=== PATIENT | female | born 1960 | race Caucasian/White ===

== ENCOUNTER 2017-01-06 17:34 | Observation (INO) | END 2017-01-07 15:45 | disposition home or self-care (01) | LOC: MEDSUR 17:34 → ED 17:34 → MEDSUR 20:52 | PROVIDERS: ADMIT Internal Medicine; ATTEND Internal Medicine ==

== ENCOUNTER 2017-01-09 09:34 | Observation (INO) ==
[2017-01-09] MEDS ORDERED: 0.9 % SODIUM CHLORIDE 1,000 ML IV ONE ×2 (09:54→11:35)
[2017-01-09] MEDS ORDERED: ONDANSETRON 4 MG/2 ML VIAL IV ONE (10:03)
--- NOTE | 2017-01-09 10:36 | XRay Report ---
CLINICAL INFORMATION: Rest pain COMPARISON: None. FINDINGS:The heart size, mediastinum and pulmonary vessels are unremarkable. The lungs are clear. There are no effusions. Mild old compression fractures seen in mid thoracic spine with degenerative disc disease throughout the thoracic spine IMPRESSION: No acute cardiopulmonary disease. Consider formal DEXA scanning patient may benefit from medical therapy for osteoporosis - if present Interpreted and Authenticated by: Vinay Vance 01/09/17
[2017-01-09 10:38] LABS: Mean Cell Volume 84.6 fL (80.0-100.0); Mean Corpuscular HGB Conc 33.3 g/dL (31.0-36.0); Mean Corpuscular Hemoglobin 28.2 pg (26.0-34.0); Platelet Count 134 K/mcL (140-440); RBC 4.25 M/mcL (4.00-5.20); Red Cell Distribution Width 12.9 % (11.5-14.5)
[2017-01-09 11:00] LABS: Creatine Kinase MB 3.8 ng/ml (0-2.9)
[2017-01-09 11:03] LABS: ALT/SGPT 12 U/l (0-40); Albumin/Globulin Ratio 1.8 (1.0-2.3); Alkaline Phosphatase 93 U/L (39-117); Beta Hydroxybutyrate 1.77 mmol/L (< 0.27); Blood Urea Nitrogen 23 mg/dl (6-20)
[2017-01-09 11:11] LABS: Eosinophils % (Manual) 2 % (0-7); Lymphocytes % 19 % (15-49); Monocytes % (Manual) 5 % (1-12); Platelet Estimate NORMAL (NORMAL); RBC Morphology NORMAL (NORMAL); Segmented Neutrophils % 74 % (38-78)
[2017-01-09] MEDS ORDERED: INSULIN REGULAR, HUMAN 50 UNIT in 0.9 % SODIUM CHLORIDE 99.5 ML IV ONE ×2 (11:15→12:30)
[2017-01-09] MEDS ORDERED: INSULIN REGULAR, HUMAN 1 UNIT/0.01 ML UNIT IV ONE (11:16)
[2017-01-09 11:24] LABS: Appearance,Urine HAZY; Bacteria,Urine 0 /hpf (0); Bilirubin,Urine NEG (NEG); Color,Urine YELLOW; Glucose,Urine (UA) >=500 mg/dL (NEG); Leukocyte Esterase,Urine 25 /uL (NEG); Mucus,Urine FEW /hpf (0); Nitrate,Urine NEG (NEG); Protein,Urine NEG (NEG); Specific Gravity,Urine 1.011 (1.000-1.035); Urine Blood NEG mg/dL (<0.03); Urine RBC 1 /hpf (0-1); Urine Squamous Epithelial Cell < 1 /hpf (0-4); Urine WBC 1 /hpf (0-4); Urobilinogen,Urine NEG (NEG)
--- NOTE | 2017-01-09 11:30 | Emergency Department Note ---
General Adult HPI - General Chief complaint: Blood Sugar Problem Stated complaint: elevated blood sugar Time Seen by Provider: 01/09/17 09:52 Source: patient Mode of arrival: ambulatory - History of Present Illness HPI Narrative: 56-year-old female who was admitted on 01/06 for poor diabetic control and UTI. Discharged the next day for hydration and UTI. She was seen again for the G and was noted that the BP was elevated she was treated with Norvasc troponins were performed which were negative at that time she had some chest pain at that time as well. she States. She appears to be somewhat noncompliant with the medications she does have a care provider who did give her insulin this morning at 6 units of rapid acting. Her blood sugars elevated today at 400 states she had an episode of chest pain again today just prior to coming into the ED. he is denying chest pain at this time. Describes the pain as sharp in nature. Her blood sugars continue to be elevated. We will continue the workup. - Related Data Home Medications Medication Instructions Recorded Confirmed alprazolam 0.5 mg tablet 0.5 mg PO DAILY tab 12/09/14 01/09/17 aripiprazole 10 mg tablet 10 mg PO QAM tab 12/09/14 01/09/17 ergocalciferol (vitamin D2) 50,000 50,000 unit PO MO@0900 cap 12/09/14 01/09/17 unit capsule lamotrigine 100 mg tablet 100 mg PO QHS tab 12/09/14 01/09/17 loxapine succinate 10 mg capsule 10 mg PO BID cap 12/09/14 01/09/17 tramadol 50 mg tablet 50 mg PO TID PRN tab 12/09/14 01/09/17 paliperidone palmitate 156 mg/mL 156 mg IM Q28D ml 11/17/15 01/09/17 intramuscular syringe benztropine 1 mg tablet 1 mg PO BID 30 Days 07/20/16 01/09/17 lisinopril 5 mg tablet 5 mg PO DAILY 30 Days 07/20/16 01/09/17 Atorvastatin [Lipitor] 40 mg PO Q48H 01/06/17 01/09/17 Omeprazole [Prilosec] 40 mg PO BID 01/09/17 01/09/17 Previous Rx's Medication Instructions Recorded baclofen 20 mg tablet 20 mg PO Q6H #60 tab 12/18/14 albuterol sulfate HFA 90 90 mcg INHALATION Q4H PRN #8.5 g 07/13/15 mcg/actuation aerosol inhaler mupirocin 2 % topical ointment 1 applic TOPICAL BID #22 g 10/04/15 oxybutynin chloride ER 10 mg 10 mg PO QDAY #30 tab 03/08/16 tablet,extended release 24 hr cetirizine 10 mg tablet 5 mg PO QHS #30 tab 07/13/16 escitalopram 20 mg tablet 20 mg PO QAM #30 tab 07/24/16 levothyroxine 112 mcg tablet 112 mcg PO QAM #30 tab 07/24/16 insulin glargine 100 unit/mL (3 60 unit SUB-Q QDAY #15 ml 09/14/16 mL) subcutaneous pen insulin aspart 100 unit/mL 1 unit SUB-Q ONCE #15 ml 09/21/16 subcutaneous pen ranitidine 150 mg tablet 150 mg PO BID #60 tab 10/09/16 hydrocodone 5 mg-acetaminophen 325 1 tab PO TID-QID PRN #120 tab 12/22/16 mg tablet Allergies Allergy/AdvReac Type Severity Reaction Status Date / Time Tetracycline Allergy Mild Hives Verified 01/09/17 09:43 Erythromycin Base Allergy Unknown Diarrhea Verified 01/09/17 09:43 Penicillins Allergy Unknown Hives Verified 01/09/17 09:43 [place] Allergy Unknown Hives Verified 01/09/17 09:43 Review of Systems All systems ED: reviewed and negative except as stated. Constitutional: Denies: fever Eyes: Denies: eye pain ENT ED: Denies: ear pain Cardiovascular: Reports: chest pain. Denies: palpitations, dyspnea on exertion , orthopnea Respiratory: Denies: cough, dyspnea Gastrointestinal: Denies: abdominal pain, nausea Genitourinary: Denies: urgency, dysuria Musculoskeletal: Denies: back pain Integumentary: Denies: rash Neurological: Reports: weakness. Denies: headache Psychiatric: Denies: anxiety Endocrine: Denies: fatigue Hematological/Lymphatic: Denies: easy bleeding Allergic/Immunologic: Denies: facial swelling Past Medical History - Past Medical History Medical history: Reports: diabetes, GERD, hyperlipidemia, hypertension, kidney stones, renal disease, thyroid disease, other Surgical history ED: Reports: hysterectomy, tonsillectomy, other (Strabismus) Psychiatric history: Reports: schizophrenia (Schizoaffective) Family history: Reports: non-contributory - Social History Alcohol use: Reports: None Drug use: Reports: none Course Vital Signs Temperature 97.1 F 01/09/17 09:35 Pulse Rate 103 H 01/09/17 09:35 Respiratory Rate 16 01/09/17 09:35 Blood Pressure 114/85 01/09/17 09:35 Pulse Oximetry (%) 94 01/09/17 09:35 Temperature 97.1 F 01/09/17 09:35 Pulse Rate 96 H 01/09/17 11:00 Respiratory Rate 19 01/09/17 11:00 Blood Pressure 145/98 01/09/17 11:00 Pulse Oximetry (%) 91 01/09/17 11:00 Medical Decision Making - [facility] Narrative Medical decision making narrative: Patient blood sugar was 420 with positive ketones in the blood and also the bicarb level was 16. ABG show pH of 7.4 respiratory alkalosis compensation. With CO2 of 28.. Level was 17 on ABGs. Given IV fluids and PA protocol started however at a very low dose of 4 units IV.. Patient has severe schizophrenia is unable to her medications and she has 6 different care providers helping her with her medications would recommend that her providers only instructed on use of the sliding scale. - Lab Data Result diagrams: 01/09/17 10:03 01/09/17 10:03 Lab Results 01/09/17 01/09/17 01/09/17 Range/Units 10:03 10:03 10:03 WBC 6.1 (4.5-11.0) K/mcL RBC 4.25 (4.00-5.20) M/mcL Hgb 12.0 (12.0-15.0) g/dL Hct 35.9 L (36.0-48.0) % POC Hct 37.0 (36.0-48.0) % MCV 84.6 (80.0-100.0) fL MCH 28.2 (26.0-34.0) pg MCHC 33.3 (31.0-36.0) g/dL RDW 12.9 (11.5-14.5) % Plt Count 134 L (140-440) K/mcL MPV 11.3 H (7.4-10.4) fL Total Counted 100 Seg Neutrophils % 74 (38-78) % Band Neutrophils % Not Reportable Lymphocytes % 19 (15-49) % Monocytes % (Manual) 5 (1-12) % Eosinophils % (Manual) 2 (0-7) % Platelet Estimate Normal (NORMAL) RBC Morphology Normal (NORMAL) D-Dimer 0.38 (0.00-0.40) ug/ml POC Sodium 132 L (133-145) mmol/L Sodium 129 L (133-145) mmol/L POC Potassium 5.5 H (3.3-5.1) mmol/L Potassium 5.6 H (3.3-5.1) mmol/L POC Chloride 106 (96-108) mmol/L Chloride 95 L (96-108) mmol/L Carbon Dioxide 15 L (22-30) mmol/L POC Total CO2 16 L (22-30) mmol/L Anion Gap 19.0 H (8-16) POC BUN 23 H (6-20) mg/dl BUN 23 H (6-20) mg/dl Creatinine 1.1 (0.6-1.1) mg/dl POC Creatinine 1.1 (0.6-1.1) mg/dl GFR Calculation 57 Glucose 426 H (70-105) mg/dL POC Glucose 408 H (70-105) mg/dL Calcium 9.0 (8.6-10.4) mg/dl POC WB Ioniz Calcium 1.18 (1.16-1.32) mmol/L Total Bilirubin 0.4 (0.0-1.0) mg/dL AST 11 (0-37) U/l ALT 12 (0-40) U/l Alkaline Phosphatase 93 (39-117) U/L Total Creatine Kinase (24-170) IU/L CK-MB (CK-2) (0-2.9) ng/ml Myoglobin (25-58) ng/ml Troponin T (0-0.03) ng/ml Total Protein 6.2 (5.9-8.4) gm/dL Albumin 4.0 (3.2-5.2) gm/dL Globulin 2.2 (2.2-3.7) gm/dL Albumin/Globulin Ratio 1.8 (1.0-2.3) Beta-Hydroxybutyrate 1.77 H (< 0.27) mmol/L Urine Color Urine Appearance Urine pH (5.0-9.0) Ur Specific Mio (1.000-1.035) Urine Protein (NEG) mg/dL Urine Glucose (UA) (NEG) mg/dL Urine Ketones (NEG) mg/dL Urine Occult Blood (<0.03) mg/dL Urine Nitrate (NEG) Urine Bilirubin (NEG) mg/dL Urine Urobilinogen (NEG) mg/dL Ur Leukocyte Esterase (NEG) /uL Urine RBC (0-1) /hpf Urine WBC (0-4) /hpf Ur Squamous Epith Cells (0-4) /hpf Urine Bacteria (0) /hpf Urine Mucus (0) /hpf Ur Culture Indicated? 01/09/17 01/09/17 01/09/17 Range/Units 10:03 10:03 10:50 WBC (4.5-11.0) K/mcL RBC (4.00-5.20) M/mcL Hgb (12.0-15.0) g/dL Hct (36.0-48.0) % POC Hct (36.0-48.0) % MCV (80.0-100.0) fL MCH (26.0-34.0) pg MCHC (31.0-36.0) g/dL RDW (11.5-14.5) % Plt Count (140-440) K/mcL MPV (7.4-10.4) fL Total Counted Seg Neutrophils % (38-78) % Band Neutrophils % Lymphocytes % (15-49) % Monocytes % (Manual) (1-12) % Eosinophils % (Manual) (0-7) % Platelet Estimate (NORMAL) RBC Morphology (NORMAL) D-Dimer (0.00-0.40) ug/ml POC Sodium (133-145) mmol/L Sodium (133-145) mmol/L POC Potassium (3.3-5.1) mmol/L Potassium (3.3-5.1) mmol/L POC Chloride (96-108) mmol/L Chloride (96-108) mmol/L Carbon Dioxide (22-30) mmol/L POC Total CO2 (22-30) mmol/L Anion Gap (8-16) POC BUN (6-20) mg/dl BUN (6-20) mg/dl Creatinine (0.6-1.1) mg/dl POC Creatinine (0.6-1.1) mg/dl GFR Calculation Glucose (70-105) mg/dL POC Glucose (70-105) mg/dL Calcium (8.6-10.4) mg/dl POC WB Ioniz Calcium (1.16-1.32) mmol/L Total Bilirubin (0.0-1.0) mg/dL AST (0-37) U/l ALT (0-40) U/l Alkaline Phosphatase (39-117) U/L Total Creatine Kinase 132 (24-170) IU/L CK-MB (CK-2) 3.8 H (0-2.9) ng/ml Myoglobin 71 H (25-58) ng/ml Troponin T < 0.01 (0-0.03) ng/ml Total Protein (5.9-8.4) gm/dL Albumin (3.2-5.2) gm/dL Globulin (2.2-3.7) gm/dL Albumin/Globulin Ratio (1.0-2.3) Beta-Hydroxybutyrate (< 0.27) mmol/L Urine Color Yellow Urine Appearance Hazy Urine pH 5.0 (5.0-9.0) Ur Specific Mio 1.011 (1.000-1.035) Urine Protein Neg (NEG) mg/dL Urine Glucose (UA) >=500 A (NEG) mg/dL Urine Ketones 5/tr A (NEG) mg/dL Urine Occult Blood Neg (<0.03) mg/dL Urine Nitrate Neg (NEG) Urine Bilirubin Neg (NEG) mg/dL Urine Urobilinogen Neg (NEG) mg/dL Ur Leukocyte Esterase 25 A (NEG) /uL Urine RBC 1 (0-1) /hpf Urine WBC 1 (0-4) /hpf Ur Squamous Epith Cells < 1 (0-4) /hpf Urine Bacteria 0 (0) /hpf Urine Mucus Few (0) /hpf Ur Culture Indicated? No Disposition Pt seen by [employer]/PA only: No Clinical Impression: Diabetic ketoacidosis Disposition: Xfer As Inpt ([facility]) Condition: Fair Referrals: Ander Snyder MD [Primary Care Provider] -
[2017-01-09] MEDS ORDERED: INSULIN REGULAR, HUMAN 50 UNIT in 0.9 % SODIUM CHLORIDE 100 ML IV SCH (12:51)
[2017-01-09] MEDS ORDERED: ONDANSETRON 4 MG/2 ML VIAL IV PRN (12:51)
[2017-01-09] MEDS ORDERED: METOCLOPRAMIDE 10 MG/2 ML VIAL IV PRN (12:51)
[2017-01-09] MEDS ORDERED: NALOXONE HCL 0.4 MG/ML VIAL IV PRN (12:51)
[2017-01-09] MEDS: 0.45 % SODIUM CHLORIDE 1,000 ML IV SCH ×4 (13:09→22:11)
[2017-01-09] MEDS: ALBUTEROL SULFATE 2.5 MG/3 ML NEBULIZER NEB SCH ×2 (13:15→19:26)
[2017-01-09 13:24] LABS: ALT/SGPT 12 U/l (0-40); Albumin/Globulin Ratio 1.7 (1.0-2.3); Alkaline Phosphatase 92 U/L (39-117); Bilirubin,Direct < 0.2 mg/dL (0.0-0.3); Blood Urea Nitrogen 24 mg/dl (6-20); Gamma Glutamyl Transpeptidase 13 U/L (5-36); Magnesium 1.2 mg/dL (1.6-2.5); Uric Acid 5.4 mg/dL (2.5-8.0)
[2017-01-09] MEDS ORDERED: CALCIUM GLUCONATE 4.65 MEQ/10 ML VIAL IV ONE (13:41)
[2017-01-09] MEDS ORDERED: CALCIUM GLUCONATE 4.65 MEQ in 0.9 % SODIUM CHLORIDE 50 ML IV ONE (13:45)
[2017-01-09] MEDS: 0.9 % SODIUM CHLORIDE 10 ML SYRINGE IV SCH ×2 (14:16→20:54)
[2017-01-09 14:57] LABS: Blood Urea Nitrogen 20 mg/dl (6-20)
[2017-01-09] MEDS ORDERED: INSULIN GLARGINE, HUMAN 1 UNIT/0.01 ML SQ ONE (15:03)
--- NOTE | 2017-01-09 15:12 | Internal Med History&Physical ---
Medical - H&P: HPI Patient information: Note initiated : 01/09/17 at 3:06 pm Service Date, if different from initiated Date: [] Patient: Padmaja Dillard 56 y/o F admitted on 01/09/17 for elevated blood sugar. Chief Complaint: [] History of present illness: Ms. Dillard is a 56 year old Female with h/o mental health issues, and DM on insulin presents to the ER for for 2 days in a row, after being discahrged 2 days ago. The patient was admitted to the hospital initially on the fifth of this month for hyperglycemia and acute renal failure. Patient was treated with IV fluids and insulin. The patient responded to treatment very well and overnight her glucose level was back to baseline, her kidney function improved and she was discharged home. The patient did not take her long-acting insulin on the day of discharge, had increased amounts of carb intake. That evening although she did not sugar laden products, Her diet consisted of fries and chips. The patient next day had some confusion and headache and was seen in the ED again this was yesterday, her head CT was done which was negative and her labs showed that she had glucose n the 300s. The patient had a negative workup for infection. Her mental status has cleared and therefore was discharged home. The patient did not take her long-acting insulin again yesterday because she was in the emergency department. She forgot to take her nighttime insulin last night. This morning she had 3 cups of sugary coffee and when she checked her blood sugar level was elevated around 450. She therefore presented to the ER he patient has chronic back pain but denies any other complaints. On talking with the patient is clear that the patient does not have much insight with regards to her disease process, notes that her sugars usually run in 300s in the afternoon. In the ER, the patient had elevated glucose, hyponatremia, hyperkalemia, elevated anion gap, slight ketones positive,elevated hydroxybutyrate, negative chest x-ray negative. UA. The patient was admitted to the hospital for acute diabetic ketoacidosis. Review of systems: CONSTITUTIONAL: No weight loss, fever, chills, weakness or fatigue. HEENT: Eyes: No visual loss, blurred vision, double vision or yellow sclerae. Ears, Nose, Throat: No hearing loss, sneezing, congestion, runny nose or sore throat. SKIN: No rash or itching. CARDIOVASCULAR: No chest pain, chest pressure or chest discomfort. No palpitations or edema. RESPIRATORY: No shortness of breath, cough or sputum. GASTROINTESTINAL: No nausea, vomiting or diarrhea or constipation. No abdominal pain or blood in stools No Anne. GENITOURINARY: Denies Burning on urination. Blood in urine, or foul smelling urine NEUROLOGICAL: No headache, dizziness, syncope, paralysis, tremors, numbness or tingling in the extremities. No change in bowel or bladder control. MUSCULOSKELETAL: No muscle, present Chr back pain, joint pain or stiffness. HEMATOLOGIC: No bleeding or bruising. No enlarged nodes PSYCHIATRIC: No depression or anxiety. ENDOCRINOLOGIC: No reports of sweating, cold or heat intolerance. No polyuria or polydipsia. ALLERGIES: No hives, eczema or rhinitis. Skin: No rash, no jaundice, cyanosis or pallor. Medical - H&P: [facility] Medical history: Medical History (Last Updated 01/09/17 @ 11:51 by Ander Mason MD) Anemia in chronic kidney disease (Chronic) CKD (chronic kidney disease), stage II (Chronic 02/05/13) Chronic kidney disease, stage III (moderate) (Chronic) Chronic schizoaffective disorder (Chronic) Diabetes (Chronic) Diabetes mellitus (Chronic) Diabetes mellitus type II, uncontrolled (Chronic) Diabetes mellitus, type II (Chronic 07/29/14) Esophageal reflux (Chronic) History of kidney stones (Chronic) Hyperlipidemia (Chronic 04/03/06) Hypertension, essential (Chronic) 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) Hypothyroidism (acquired) (Chronic) Keratoconjunctivitis sicca not specified as Sjogren's (Chronic) Lattice degeneration of peripheral retina (Chronic) [employer]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) Overweight (Chronic) Proteinuria (Chronic) Repetitive strain injury of lower back (Chronic) Stress incontinence, female (Chronic) 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) UTI (urinary tract infection) (Chronic) Urinary tract infection (Chronic) Vitamin D deficiency (Chronic) Dental abscess (Resolved) Diarrhea (Resolved) Dysuria (Resolved) Left wrist injury (Resolved) Pustular eczema (Resolved) Urge incontinence (Resolved) Vomiting (Resolved) Wrist Injury (Resolved) Surgical history: Past Surgical History (Last Updated 10/26/16 @ 10:15 by Ander Snyder MD) History of adenoidectomy (Resolved) History of eye surgery (Resolved) History of hysterectomy (Resolved) History of tonsillectomy (Resolved) Pertinent family history: Family History (Last Reviewed 10/26/16 @ 10:14 by Ander Snyder MD) Unknown Depression Cardiac disease Essential hypertension Grandmother(paternal)/92 Malignant neoplasm Medical - H&P: Meds Home Medications Medication Instructions Recorded Confirmed Type alprazolam 0.5 mg tablet 0.5 mg PO DAILY tab 12/09/14 01/09/17 History aripiprazole 10 mg tablet 10 mg PO QAM tab 12/09/14 01/09/17 History ergocalciferol (vitamin D2) 50,000 50,000 unit PO MO@0900 cap 12/09/14 History unit capsule lamotrigine 100 mg tablet 100 mg PO QHS tab 12/09/14 01/09/17 History loxapine succinate 10 mg capsule 10 mg PO BID cap 12/09/14 01/09/17 History tramadol 50 mg tablet 50 mg PO TID PRN tab 12/09/14 01/09/17 History baclofen 20 mg tablet 20 mg PO Q6H #60 tab 12/18/14 01/09/17 Rx albuterol sulfate HFA 90 90 mcg INHALATION Q4H PRN #8.5 g 07/13/15 01/09/17 Rx mcg/actuation aerosol inhaler mupirocin 2 % topical ointment 1 applic TOPICAL BID #22 g 10/04/15 01/09/17 Rx paliperidone palmitate 156 mg/mL 156 mg IM Q28D ml 11/17/15 01/09/17 History intramuscular syringe oxybutynin chloride ER 10 mg 10 mg PO QDAY #30 tab 03/08/16 01/09/17 Rx tablet,extended release 24 hr cetirizine 10 mg tablet 5 mg PO QHS #30 tab 07/13/16 01/09/17 Rx benztropine 1 mg tablet 1 mg PO BID 30 Days 07/20/16 01/09/17 History lisinopril 5 mg tablet 5 mg PO DAILY 30 Days 07/20/16 01/09/17 History escitalopram 20 mg tablet 20 mg PO QAM #30 tab 07/24/16 01/09/17 Rx levothyroxine 112 mcg tablet 112 mcg PO QAM #30 tab 07/24/16 01/09/17 Rx insulin glargine 100 unit/mL (3 60 unit SUB-Q QDAY #15 ml 09/14/16 01/09/17 Rx mL) subcutaneous pen insulin aspart 100 unit/mL 1 unit SUB-Q ONCE #15 ml 09/21/16 01/09/17 Rx subcutaneous pen ranitidine 150 mg tablet 150 mg PO BID #60 tab 10/09/16 01/09/17 Rx hydrocodone 5 mg-acetaminophen 325 1 tab PO TID-QID PRN #120 tab 12/22/16 Rx mg tablet Atorvastatin [Lipitor] 40 mg PO Q48H 01/06/17 01/09/17 History Omeprazole [Prilosec] 40 mg PO BID 01/09/17 01/09/17 History Allergies Allergy/AdvReac Type Severity Reaction Status Date / Time Sulfa (Sulfonamide Allergy Intermediate Itching Verified 01/09/17 12:36 Antibiotics) Tetracycline Allergy Mild Hives Verified 01/09/17 09:43 Erythromycin Base Allergy Unknown Diarrhea Verified 01/09/17 09:43 Penicillins Allergy Unknown Hives Verified 01/09/17 09:43 [place] Allergy Unknown Hives Verified 01/09/17 09:43 Medical - H&P: Exam - Constitutional Vitals: Temp Pulse Resp BP Pulse Ox 98.5 F 80 15 140/87 100 01/09/17 13:00 01/09/17 13:18 01/09/17 14:00 01/09/17 14:00 01/09/17 14:00 Exam: GENERAL: The patient is a well-developed, well-nourished in no apparent distress. Is alert and oriented x3. VITAL SIGNS: Reviewed and as noted elsewhere. HEENT: Head is normocephalic and atraumatic. Extraocular muscles are intact. Pupils are equal, round, and reactive to light. Nares appeared normal. Mouth appears any without lesions. Mucous membranes are dry. NECK: Normal to inspection, Supple, No lymphadenopathy or thyromegaly. LUNGS: Air entry equal on both sides, no wheezing, crackles or rhonchi noted. No accessory muscles of respiration HEART: Regular rate and rhythm normal, S1 and S2 heard, no Gallop, S3 or Rub Noted, No Gross murmur heard. ABDOMEN: Soft, nontender, and nondistended. Positive bowel sounds. No hepatosplenomegaly was noted. EXTREMITIES: No cyanosis, clubbing, rash, lesions or edema. NEUROLOGIC: Cranial nerves II through XII are grossly intact. Motor and Sensory System Grossly Intact PSYCHIATRIC: Normal affect, Normal Mood. Appropriate Behavior. SKIN: No ulceration or wounds noted, No jaundice, No rash noted. Medical - H&P: Reslt - Labs CBC & Chem 7: 01/09/17 10:03 01/09/17 13:50 Labs: BMP 01/09/17 13:50 Sodium 138 Potassium 5.1 Chloride 106 Carbon Dioxide 17 L BUN 20 Creatinine 1.0 Glucose 212 H Calcium 8.9 Medical - H&P: A/P - Narrative A/P Narrative: A/P DKA: due to noncompliance of medications. Mild DKA was treated with IV fluids, IV insulin, and nothing by mouth status. By the time of dictation, the Actos to 15. Patient feeling well, I have stopped the drip and Lantus at home to 60 has been started. We'll resume by mouth diet. Uncontrolled diabetes-patient has very poor insight into disease process, I reviewed the PCPs note and despite education. It seems that the patient is noncompliant with the diet, his current flareup of . Elevated glucose started from her drinking sugary drinks and then admissions to the hospital and subsequent ER visits leading to skipping her home doses of insulin. The patient has been educated again at this visit. The patient may benefit with enhanced supervision for her diabetes management. Noncompliance with medications as well as diet-patient educated at length. Hyponatremia, this is pseudohyponatremia due to elevated sugarwould resolve as soon as the sugars corrected. Hyperkalemia-due to acidosis, expect to resolve with fluids and insulin. EKG shows no changes , calcium gluconate given. dVT prophylaxis-heparin. Diet is diabetic diet,patient was nothing by mouth, however, her gap closed and therefore diet has been resumed The patient is full code. Medical - H&P: Qual - VTE Deep Vein Thrombosis/Pulmonary Embolism Present on Admission: No Social History - Tobacco smoking status: Never smoker
[2017-01-09] MEDS ORDERED: DEXTROSE 31 GM ORAL.SUSP PO PRN (15:24)
[2017-01-09] MEDS ORDERED: DEXTROSE 50% 50 ML VIAL IV PRN (15:24)
[2017-01-09] MEDS: INSULIN LISPRO 1 UNIT/0.01 ML UNIT SQ SCH ×2 (16:35→20:53)
[2017-01-09] MEDS: HEPARIN 5,000 UNIT/ML VIAL SQ SCH (20:54)
[2017-01-10] MEDS: ALBUTEROL SULFATE 2.5 MG/3 ML NEBULIZER NEB SCH ×4 (00:50→19:14)
[2017-01-10] MEDS: 0.45 % SODIUM CHLORIDE 1,000 ML IV SCH ×2 (02:02→06:12)
[2017-01-10] MEDS: 0.9 % SODIUM CHLORIDE 10 ML SYRINGE IV SCH ×3 (05:47→21:36)
[2017-01-10 06:24] LABS: Beta Hydroxybutyrate 0.23 mmol/L (< 0.27)
[2017-01-10] MEDS: INSULIN LISPRO 1 UNIT/0.01 ML UNIT SQ SCH ×4 (08:01→20:25)
[2017-01-10 08:08] LABS: Mean Cell Volume 83.1 fL (80.0-100.0); Mean Corpuscular HGB Conc 33.7 g/dL (31.0-36.0); Platelet Count 138 K/mcL (140-440); RBC 4.13 M/mcL (4.00-5.20); Red Cell Distribution Width 12.5 % (11.5-14.5)
[2017-01-10 08:41] LABS: ALT/SGPT 10 U/l (0-40); Albumin 3.5 gm/dL (3.2-5.2); Albumin/Globulin Ratio 1.7 (1.0-2.3); Alkaline Phosphatase 71 U/L (39-117); Bilirubin,Direct < 0.2 mg/dL (0.0-0.3); Blood Urea Nitrogen 12 mg/dl (6-20); Gamma Glutamyl Transpeptidase 11 U/L (5-36); Magnesium 1.3 mg/dL (1.6-2.5); Uric Acid 5.1 mg/dL (2.5-8.0)
[2017-01-10 08:46] LABS: Lymphocytes % 19 % (15-49); Monocytes % (Manual) 5 % (1-12); Platelet Estimate DECREASED (NORMAL); RBC Morphology NORMAL (NORMAL); Segmented Neutrophils % 76 % (38-78)
[2017-01-10] MEDS ORDERED: ATORVASTATIN 20 MG TABLET PO SCH (09:00)
[2017-01-10] MEDS ORDERED: MAGNESIUM SULFATE 32.48 MEQ in DEXTROSE 5% IN WATER 50 ML IV ONE (09:17)
[2017-01-10] MEDS: HEPARIN 5,000 UNIT/ML VIAL SQ SCH ×2 (09:48→20:25)
[2017-01-10] MEDS ORDERED: INSULIN GLARGINE, HUMAN 1 UNIT/0.01 ML SQ SCH (10:06)
[2017-01-10] MEDS ORDERED: traMADol 50 MG TABLET PO PRN ×2 (10:06→11:23)
[2017-01-10] MEDS ORDERED: ESCITALOPRAM 20 MG TABLET PO SCH (10:07)
[2017-01-10] MEDS ORDERED: ARIPIPRAZOLE 10 MG TABLET PO SCH (10:07)
--- NOTE | 2017-01-10 10:14 | Internal Med Progress Note ---
Medical - PN: Subj Patient information: Note initiated : 01/10/17 at 10:12 am Service Date, if different from initiated Date: [] Patient: Padmaja Dillard 56 y/o F admitted on 01/09/17 for elevated blood sugar. Chief Complaint: [] Interval history: Ms. Dillard is a 56 year old Female with h/o mental health issues, and DM on insulin presents to the ER for for 2 days in a row, after being discahrged 2 days ago. The patient was admitted to the hospital initially on the fifth of this month for hyperglycemia and acute renal failure. Patient was treated with IV fluids and insulin. The patient responded to treatment very well and overnight her glucose level was back to baseline, her kidney function improved and she was discharged home. The patient did not take her long-acting insulin on the day of discharge, had increased amounts of carb intake. That evening although she did not sugar laden products, Her diet consisted of fries and chips. The patient next day had some confusion and headache and was seen in the ED again this was yesterday, her head CT was done which was negative and her labs showed that she had glucose n the 300s. The patient had a negative workup for infection. Her mental status has cleared and therefore was discharged home. The patient did not take her long-acting insulin again yesterday because she was in the emergency department. She forgot to take her nighttime insulin last night. This morning she had 3 cups of sugary coffee and when she checked her blood sugar level was elevated around 450. She therefore presented to the ER he patient has chronic back pain but denies any other complaints. On talking with the patient is clear that the patient does not have much insight with regards to her disease process, notes that her sugars usually run in 300s in the afternoon. In the ER, the patient had elevated glucose, hyponatremia, hyperkalemia, elevated anion gap, slight ketones positive,elevated hydroxybutyrate, negative chest x-ray negative. UA. The patient was admitted to the hospital for acute diabetic ketoacidosis. 01/10: Pt seen examined, sitting comfortably eating breakfast, does not report any acute issues, no BM since yesterday, but feels she may have to go soon. Thept had low glucose on BMP this AM, but repeat FS is better after diet, will cut back on dose of lantus of 50 units this AM, the patient otherwise is back to baseline. I plan to monitor glucose for additional day to ensure stability before discahrge. given this present admission to the hospital is purely due to non complicance with diet and exercise. We will try to educated the care providers on the need ot ensure compliance with medication. Pertinent ROS: Denies headache, dizziness Denies chest pain, palpitations Denies cough or shortness of breath Denies abdominal pain, nausea or vomiting. - Constitutional Vitals: Vital Signs Temp Pulse Resp BP Pulse Ox 98.9 F 91 H 18 118/78 99 01/10/17 08:01 01/10/17 09:16 01/10/17 08:01 01/10/17 09:16 01/10/17 09:16 Period Temp Pulse Resp BP Sys/Ballard Pulse Ox Last 24 Hr 97.6 F-98.9 F 75-105 12-22 97-167/70-104 87-100 Intake and Output 01/09/17 01/10/17 01/10/17 21:59 05:59 13:59 Intake Total 1083.5 / 1083.5 2420 / 2420 2057 Output Total 850 / 850 1450 / 1450 1750 / 1750 Balance 233.5 / 233.5 970 / 970 308 / 308 Weight 155 lb Intake & Output: Intake & Output 01/09/17 01/10/17 01/10/17 21:59 05:59 13:59 Intake Total 1083.5 / 1083.5 2420 / 2420 2057 Output Total 850 / 850 1450 / 1450 1750 / 1750 Balance 233.5 / 233.5 970 / 970 308 / 308 Weight 155 lb Intake: IV 1083.5 / 1083.5 1999 1458 / 1458 Sodium Chloride 0.45% 1, 1000 / 1000 1999 / 1999 1458 / 1458 000 ml @ 250 mls/hr IV . Q4H DIANA Rx#:[id number] HumuLIN R 50 UNIT In 83.5 / 83.5 Sodium Chloride 0.9% 100 ml @ 0.1 UNIT/KG/HR 13.67 mls/hr IV DUR DIANA Rx#: [id number] Oral 420 / 420 600 / 600 Output: Void Amount 850 / 850 1450 / 1450 1750 / 1750 Other: Meal Breakfast Percent of Meal Consumed 100% # Voids 1 # Bowel Movements 0 0 Exam: Constitutional; Afebrile, cooperative, alert, not in distress. Eyes- No icterus, , No periorbital swelling Ears- Ext ear normal, hearing normal to conversation. Neck- Midline trachea, supple Respiratory system: Air Entry equal on both sides, No crackles or wheezing, no rhonchi. CVS- Rate rhythm regular, S1,S2 heard, no gallop, no rub. Abdomen- Soft nontender abdomen, no organomegaly, no tenderness, no guarding or rigidity, [employer]- AOOx3, moving all extremities, no gross focal deficit noted. Medical - PN: Obj Da - Labs CBC & Chem 7: 01/10/17 07:22 01/10/17 07:22 Labs: Abnormal Lab Results 01/10/17 01/10/17 01/09/17 07:22 07:22 13:50 Hgb 11.6 L Hct 34.4 L Plt Count 138 L MPV 10.9 H Carbon Dioxide 17 L 17 L Anion Gap 17.0 H Glucose 51 L 212 H Calcium 8.5 L Magnesium 1.3 L Total Protein 5.6 L Globulin 2.1 L Triglycerides 182 H Meds: Medications Albuterol Sulfate (Ventolin) 2.5 mg NEB Q6HRT [facility] Last Admin: 01/10/17 07:01 Dose: 2.5 mg Alprazolam (Xanax) 0.5 mg PO DAILY [facility] Atorvastatin Calcium (Lipitor) 40 mg PO Q48H [facility] Benztropine Mesylate (Cogentin) 1 mg PO BID [facility] Cetirizine HCl (Zyrtec) 5 mg PO QHS [facility] Dextrose (Dextrose 50%) 0 ml IV UD PRN PRN Reason: Hypoglycemia Diagnostic Test (Pha) (Accu-Chek) 1 each FS ACHS [facility] Last Admin: 01/10/17 08:23 Dose: 1 each Ergocalciferol (Drisdol) 50,000 unit PO MO@0900 [facility] Escitalopram Oxalate (Lexapro) 20 mg PO QAM [facility] Glucose (Insta-Glucose) 15 gm PO PRN PRN PRN Reason: Hypoglycemia Heparin Sodium (Porcine) (Heparin) 5,000 unit SQ Q12 [facility] Last Admin: 01/10/17 09:48 Dose: 5,000 unit Magnesium Sulfate 32.48 meq/ (Dextrose) 58 mls @ 58 mls/hr IV ONCE ONE Stop: 01/10/17 10:16 Last Admin: 01/10/17 09:48 Dose: 58 mls/hr Insulin Glargine (Lantus) 50 unit SQ DAILY [facility] Insulin Human Lispro (Humalog) 0 unit SQ ACHS DIANA PRN Reason: Protocol Last Admin: 01/10/17 08:01 Dose: Not Given Lamotrigine (Lamictal) 100 mg PO QHS [facility] Levothyroxine Sodium (Synthroid) 112 mcg PO QAM [facility] Lisinopril (Zestril) 5 mg PO DAILY [facility] Metoclopramide HCl (Reglan) 5 mg IV Q6HP PRN PRN Reason: Nausea And Vomiting Naloxone HCl (Narcan) 0.1 mg IV Q2MIN PRN PRN Reason: Opiate Reversal Non-Formulary Medication (Loxapine Succinate [Loxapine]) 10 mg PO BID [facility] Non-Formulary Medication (Oxybutynin Chloride [Oxybutynin Chloride Er]) 10 mg PO QDAY [facility]IA[facility] Omeprazole (Prilosec) 40 mg PO BID [facility] Ondansetron HCl (Zofran) 4 mg IV Q4-6HP PRN PRN Reason: Nausea And Vomiting Sodium Chloride (Saline Flush) 10 ml IV Q8 [facility] Last Admin: 01/10/17 05:47 Dose: Not Given Tramadol HCl (Ultram) 50 mg PO TID PRN PRN Reason: Pain Medical - PN: A/P - Time Spent With Patient Total time spent is greater than 50% in coordination of care (as documented) at patient's floor/unit and/or counseling patient: - Narrative A/P Narrative: A/P DKA: resolvd, back to home dose of insulin, monitor for additional 24 hrs. d/c IV fluids. Uncontrolled diabetes-poor dietary and lifestyle compliance, psych issue is major barrier to care. The patient to continue home dose and we will monmitor glucose Hypoglycemia: noted on this AM labs, cut back dose of lantus here to 50 units. Noncompliance with medications as well as diet-patient educated at length. Hyponatremia, resolved, was pseudohyponatrmia Hyperkalemia-resolved Pysch issues: resume home meds, patient appears stable hypomagnesemia: replace IV and oral dVT prophylaxis-heparin. Diet is diabetic diet carb consitent The patient is full code. Medical - PN: Qual - VTE Deep Vein Thrombosis/Pulmonary Embolism Present on Admission: No
[2017-01-10] MEDS: ARIPIPRAZOLE 5 MG TABLET PO SCH (11:20)
[2017-01-10] MEDS ORDERED: METOCLOPRAMIDE 10 MG/2 ML VIAL IV PRN (11:23)
[2017-01-10] MEDS ORDERED: DEXTROSE 31 GM ORAL.SUSP PO PRN (11:23)
[2017-01-10] MEDS ORDERED: DEXTROSE 50% 50 ML VIAL IV PRN (11:23)
[2017-01-10] MEDS ORDERED: NALOXONE HCL 0.4 MG/ML VIAL IV PRN (11:23)
[2017-01-10] MEDS ORDERED: ONDANSETRON 4 MG/2 ML VIAL IV PRN (11:23)
[2017-01-10] MEDS ORDERED: OMEPRAZOLE 20 MG CAPSULE PO SCH (17:00)
[2017-01-10] MEDS: OMEPRAZOLE 20 MG CAPSULE PO SCH (17:44)
[2017-01-10] MEDS: MAGNESIUM OXIDE 400 MG TABLET PO SCH (20:24)
[2017-01-10] MEDS: BENZTROPINE 1 MG TABLET PO SCH (20:24)
[2017-01-10] MEDS ORDERED: BENZTROPINE 1 MG TABLET PO SCH (21:00)
[2017-01-10] MEDS ORDERED: lamoTRIgine 100 MG TABLET PO SCH ×2 (21:00)
[2017-01-10] MEDS ORDERED: Loxapine Succinate [Loxapine] 10 MG PO SCH (21:00)
[2017-01-10] MEDS ORDERED: CETIRIZINE 10 MG TABLET PO SCH ×2 (21:00)
[2017-01-10] MEDS ORDERED: MAGNESIUM OXIDE 400 MG TABLET PO SCH (21:00)
[2017-01-11] MEDS: ALBUTEROL SULFATE 2.5 MG/3 ML NEBULIZER NEB SCH ×3 (00:45→12:59)
[2017-01-11 05:56] LABS: Basophils # (Auto) 0 K/mcL (0.0-0.3); Basophils % (Auto) 0.4 % (0.0-2.0); Eosinophils # (Auto) 0.1 K/mcL (0.0-0.7); Eosinophils % (Auto) 1.1 % (0.0-7.0); Granulocytes % (Auto) 67.7 % (38.0-78.0); Lymphocytes # (Auto) 1.4 K/mcL (1.5-4.8); Lymphocytes % (Auto) 20.7 % (15.5-49.0); Mean Cell Volume 83.5 fL (80.0-100.0); Mean Corpuscular HGB Conc 33.3 g/dL (31.0-36.0); Mean Corpuscular Hemoglobin 27.8 pg (26.0-34.0); Monocytes # (Auto) 0.7 K/mcL (0.1-0.9); Monocytes % (Auto) 10.1 % (1.0-12.0); Platelet Count 140 K/mcL (140-440); RBC 4.08 M/mcL (4.00-5.20); Red Cell Distribution Width 12.6 % (11.5-14.5)
[2017-01-11] MEDS: 0.9 % SODIUM CHLORIDE 10 ML SYRINGE IV SCH ×2 (06:09→14:29)
[2017-01-11 06:33] LABS: ALT/SGPT 11 U/l (0-40); Albumin 3.8 gm/dL (3.2-5.2); Albumin/Globulin Ratio 1.7 (1.0-2.3); Alkaline Phosphatase 74 U/L (39-117); Bilirubin,Direct < 0.2 mg/dL (0.0-0.3); Blood Urea Nitrogen 11 mg/dl (6-20); Gamma Glutamyl Transpeptidase 10 U/L (5-36); Magnesium 2.1 mg/dL (1.6-2.5); Uric Acid 5.8 mg/dL (2.5-8.0)
[2017-01-11] MEDS ORDERED: LEVOTHYROXINE SODIUM 112 MCG TABLET PO SCH ×2 (07:30)
[2017-01-11] MEDS: INSULIN LISPRO 1 UNIT/0.01 ML UNIT SQ SCH ×2 (07:30→11:27)
[2017-01-11] MEDS: OMEPRAZOLE 20 MG CAPSULE PO SCH (07:32)
[2017-01-11] MEDS ORDERED: LISINOPRIL 5 MG TABLET PO SCH ×2 (09:00)
[2017-01-11] MEDS ORDERED: ALPRAZolam 0.5 MG TABLET PO SCH ×2 (09:00)
[2017-01-11] MEDS ORDERED: INSULIN GLARGINE, HUMAN 1 UNIT/0.01 ML SQ SCH (09:00)
[2017-01-11] MEDS ORDERED: OXYBUTYNIN CHLORIDE 5 MG TAB.XL.24H PO SCH ×2 (09:00)
[2017-01-11] MEDS ORDERED: PALIPERIDONE PALMITATE 156 MG IM SCH (09:00)
[2017-01-11] MEDS ORDERED: ESCITALOPRAM 20 MG TABLET PO SCH (09:00)
[2017-01-11] MEDS: MAGNESIUM OXIDE 400 MG TABLET PO SCH (09:04)
[2017-01-11] MEDS: ARIPIPRAZOLE 5 MG TABLET PO SCH (09:05)
[2017-01-11] MEDS: HEPARIN 5,000 UNIT/ML VIAL SQ SCH (09:05)
[2017-01-11] MEDS: BENZTROPINE 1 MG TABLET PO SCH (11:25)
--- NOTE | 2017-01-11 11:50 | Discharge Summary ---
Medical - DS: Prov Patient information: Note initiated : 01/11/17 at 11:43 am Service Date, if different from initiated Date: [] Patient: Padmaja Dillard 56 y/o F admitted on 01/09/17 for Elevated Blood Sugar /Diabetic Ketoacidosis. Chief Complaint: [] Date of admission: 01/09/17 12:45 Discharge date: 01/11/17 Primary care physician: Ander Snyder Admitting clinician: Rocio Blake Discharging clinician: Rocio Blake Medical - DS: Meds - Discharge Medications Active and Home Medications: Home Medications alprazolam 0.5 mg tablet 0.5 mg PO DAILY tab 12/09/14 [History Confirmed Last Taken 01/06/17 09:00] aripiprazole 10 mg tablet 10 mg PO QAM tab 12/09/14 [History Confirmed Last Taken 01/06/17 09:00] ergocalciferol (vitamin D2) 50,000 unit capsule 50,000 unit PO MO@0900 cap 01/16 [History Confirmed 01/09/17 Last Taken 01/01/17 09:00] lamotrigine 100 mg tablet 100 mg PO QHS tab 12/09/14 [History Confirmed Last Taken 01/05/17 20:00] loxapine succinate 10 mg capsule 10 mg PO BID cap 12/09/14 [History Confirmed 01/09/17 Last Taken 01/05/17 20:00] tramadol 50 mg tablet 50 mg PO TID PRN tab 12/09/14 [History Confirmed Last Taken 01/06/17 12:00] baclofen 20 mg tablet 20 mg PO Q6H #60 tab 12/18/14 [Rx Confirmed 01/09/17 Last Taken Unknown] albuterol sulfate HFA 90 mcg/actuation aerosol inhaler 90 mcg INHALATION Q4H PRN #8.5 g 07/13/15 [Rx Confirmed 01/09/17 Last Taken Unknown] mupirocin 2 % topical ointment 1 applic TOPICAL BID #22 g 10/04/15 [Rx Confirmed 01/09/17 Last Taken Unknown] paliperidone palmitate 156 mg/mL intramuscular syringe 156 mg IM Q28D ml 06/15/ 16 [History Confirmed 01/09/17 Last Taken 12/14/16 13:00] oxybutynin chloride ER 10 mg tablet,extended release 24 hr 10 mg PO QDAY #30 tab 03/08/16 [Rx Confirmed 01/09/17 Last Taken 01/06/17 12:00] cetirizine 10 mg tablet 5 mg PO QHS #30 tab 07/13/16 [Rx Confirmed 01/09/17 Last Taken 01/05/17 20:00] benztropine 1 mg tablet 1 mg PO BID 30 Days 07/20/16 [History Confirmed Last Taken Unknown] lisinopril 5 mg tablet 5 mg PO DAILY 30 Days 07/20/16 [History Confirmed Last Taken 01/06/17 09:00] escitalopram 20 mg tablet 20 mg PO QAM #30 tab 07/24/16 [Rx Confirmed 01/09/17 Last Taken 01/06/17 09:00] levothyroxine 112 mcg tablet 112 mcg PO QAM #30 tab 07/24/16 [Rx Confirmed 01/09 Last Taken 01/06/17 08:00] insulin glargine 100 unit/mL (3 mL) subcutaneous pen 60 unit SUB-Q QDAY #15 ml 09/14/16 [Rx Confirmed 01/09/17 Last Taken 01/06/17 09:00] insulin aspart 100 unit/mL subcutaneous pen 1 unit SUB-Q ONCE #15 ml 09/21/16 [ Rx Confirmed 01/09/17 Last Taken Unknown] ranitidine 150 mg tablet 150 mg PO BID #60 tab 10/09/16 [Rx Confirmed 01/09/17 Last Taken 01/06/17 09:00] hydrocodone 5 mg-acetaminophen 325 mg tablet 1 tab PO TID-QID PRN #120 tab 12/22 [Rx Confirmed 01/09/17 Last Taken Unknown] Atorvastatin [Lipitor] 40 mg PO Q48H 01/06/17 [History Confirmed 01/09/17 Last Taken 01/06/17 09:00] Omeprazole [Prilosec] 40 mg PO BID 01/09/17 [History Confirmed 01/09/17 Last Taken Unknown] Medical - DS: Hosp Hospital course: Ms. Dillard is a 56 year old Female with h/o mental health issues, and DM on insulin presented to the ER for for 2 days in a row, after being discharged 2 days ago. The patient was admitted to the hospital initially on the 06 of January for hyperglycemia and acute renal failure. Patient was treated with IV fluids and insulin. The patient responded to treatment very well and overnight her glucose level was back to baseline, her kidney function improved and she was discharged home. The patient did not take her long-acting insulin on the day of discharge, had increased amounts of carb intake. That evening although she did not sugar laden products, Her diet consisted of fries and chips. The patient next day had some confusion and headache and was seen in the ED again this was yesterday, her head CT was done which was negative and her labs showed that she had glucose n the 300s. The patient had a negative workup for infection. Her mental status has cleared and therefore was discharged home. The patient did not take her long-acting insulin again yesterday because she was in the emergency department. She forgot to take her nighttime insulin last night. This morning she had 3 cups of sugary coffee and when she checked her blood sugar level was elevated around 450. She therefore presented to the ER in the ER with workup she had slight anion gap, and hyperglycemia, no e/o of any infection, she was admitted to the hospital with mild dka, some electrolyte abnormalities related to hyperglycemia and acidosis In the hospital she was treated with IV fluids and IV insulin, her anion gap had closed on the of admission and she was transitioned to Sq insulin at home dose. The patient was kept additional 24 hrs in the hospital to ensure stability in her glucose values, she had slightly low Glucose in AM and her dose of lantus was cut to 50 units. I believe that her caloric consumption is lower in hospital and therefore her home dose caused her to have some low glucose values. The patients mother, and her care givers were educated with regards to compliance in medications as well as dietary compliance for diabetes. The patient today is tolerating po well, glucose is well controlled and she is stable for discharge. Given her mental health issues I would not be suprised if she were to return to the hospital with glucose issues in the near future. Discharge diagnosis: Hyperglycemia, DKA mild. - Time Spent with Patient Total time spent providing and/or coordinating discharge services: Less than 30 minutes Medical - DS: Exam - Constitutional Vitals: Vital Signs Temp Pulse Pulse Resp BP Pulse Ox 01/11/17 11:42 97.5 F 20 109/72 91 01/11/17 07:36 94 01/11/17 07:32 92 H 16 01/11/17 07:03 97.7 F 18 106/79 96 01/11/17 03:59 98.6 F 102 H 14 111/70 95 01/11/17 00:00 97.5 F 96 H 14 137/78 94 01/10/17 19:36 97.2 F 91 H 14 149/91 95 01/10/17 19:15 102 H 18 98 01/10/17 16:00 90 01/10/17 15:00 97.6 F 16 157/92 100 01/10/17 13:45 16 100 01/10/17 13:31 83 18 Intake and Output 01/10/17 01/11/17 01/11/17 21:59 05:59 13:59 Intake Total 200 / 200 0 / 0 Balance 200 / 200 0 / 0 Intake: Oral 200 / 200 0 / 0 Other: Meal Dinner Percent of Meal Consumed 75% Feeding Ability Independent # Voids 1 1 1 # Bowel Movements 1 Weight 153 lb Additional comments: Constitutional; Afebrile, cooperative, alert, not in distress. Eyes- No icterus, , No periorbital swelling Ears- Ext ear normal, hearing normal to conversation. Neck- Midline trachea, supple Respiratory system: Air Entry equal on both sides, No crackles or wheezing, no rhonchi. CVS- Rate rhythm regular, S1,S2 heard, no gallop, no rub. Abdomen- Soft nontender abdomen, no organomegaly, no tenderness, no guarding or rigidity, [employer]ATOR- AOOx3, moving all extremities, no gross focal deficit noted. Medical - DS: Data Labs on day of discharge: Labs from last 24 hours 01/11/17 01/11/17 01/11/17 04:11 04:11 04:11 WBC 6.8 RBC 4.08 Hgb 11.3 L Hct 34.1 L MCV 83.5 MCH 27.8 MCHC 33.3 RDW 12.6 Plt Count 140 MPV 11.1 H Gran % 67.7 Lymph % (Auto) 20.7 [place] % (Auto) 10.1 Eos % (Auto) 1.1 Baso % (Auto) 0.4 Gran # 4.6 Lymph # (Auto) 1.4 L [place] # (Auto) 0.7 Eos # (Auto) 0.1 Baso # (Auto) 0 Sodium 143 Potassium 4.1 Chloride 105 Carbon Dioxide 22 Anion Gap 16.0 BUN 11 Creatinine 0.8 GFR Calculation 84 Glucose 100 Uric Acid 5.8 Calcium 9.1 Phosphorus 4.9 H Magnesium 2.1 Total Bilirubin 0.2 Direct Bilirubin < 0.2 GGT 10 AST 11 ALT 11 Alkaline Phosphatase 74 Lactate Dehydrogenase 170 Total Protein 6.0 Albumin 3.8 Globulin 2.2 Albumin/Globulin Ratio 1.7 Triglycerides 147 Beta-Hydroxybutyrate 0.15 Medical - DS: A/P - Patient/Caregiver Discharge Instructions Activity: increase activity as tolerated Diet: Consistent Carbohydrate Additional Instructions: you were admitted to the hospital because of elevated glucose values, this happened because you were non compliant with dietary restrictions as well as did not take your long acting insulin for 2 days. you have received your long acting insulin for today, you will need to ensure you continue with your long acting insulin (basalgar) from tomorrow morning. Talk to your primary care provider with regards to adjusting your insulin dose if your glucose values are too high or too low, Go to the ER if you have any new significant concerns. Follow up with PCP in 1 week - Follow up Plan Follow up with: Ander Snyder MD [Primary Care Provider] - Disposition: Home Health Service Prognosis: Fair Rehab Potential: Fair I certify that the patient requires SNF services: No Overall status at discharge: patient is back to baseline Medical - DS: Qual - VTE Deep Vein Thrombosis/Pulmonary Embolism Present on Admission: No
[2017-01-12] MEDS ORDERED: ATORVASTATIN 20 MG TABLET PO SCH (09:00)
[2017-01-15] MEDS ORDERED: ERGOCALCIFEROL (VITAMIN D2) 50,000 UNIT CAPSULE PO SCH ×2 (09:00)
== END 2017-01-11 15:10 | disposition home health service (06) ==
LOC: ED 09:34 → ICU 12:45 → INTOOBSV 12:45 → MEDSUR 01-10 13:38
PROVIDERS: ADMIT Internal Medicine; ATTEND Internal Medicine

== ENCOUNTER 2021-06-28 12:30 | Inpatient (IN) ==
--- NOTE | 2021-06-28 13:20 | XRay Report ---
CLINICAL INFORMATION: Trauma COMPARISON: 11/12/2018 TECHNIQUE: PA and Lateral views FINDINGS: The heart size, mediastinum and pulmonary vessels are unremarkable. The lungs are clear. There are no effusions. Old appearing right-sided rib fractures noted. IMPRESSION: Normal chest. Interpreted and Authenticated by: Vinay Vance 06/28/21
--- NOTE | 2021-06-28 13:22 | XRay Report ---
CLINICAL INFORMATION: Trauma COMPARISON: 04/09/2014 FINDINGS: Transcervical fracture of the left hip with moderate coxa vera angulation appreciated. Distal trochanteric fragment is displaced 1 cm superiorly. Both SI and hip joints showing mild degeneration. Soft tissue swelling over the fracture site. IMPRESSION: Mildly displaced, angulated transcervical fracture-left hip. Interpreted and Authenticated by: Vinay Vance 06/28/21
[2021-06-28] MEDS ORDERED: morphine 4 MG/ML VIAL IV PRN ×2 (13:45→16:51)
--- NOTE | 2021-06-28 14:09 | Emergency Department Note ---
Lower Extremity Injury HPI <Deja Orr PA-C - Last Filed: 06/28/21 20:33> General Chief Complaint: Extremity Injury, Lower Stated Complaint: hip pain Time Seen by Provider: 06/28/21 12:49 Source: EMS Mode of arrival: EMS Limitations: physical limitation History of Present Illness HPI Narrative: 60-year-old female with history of developmental delay, CKD stage III, insulin- dependent diabetes, cardiomyopathy with reduced EF of 48% who presents with fall last night and left hip pain. She tried to walk on it this morning and felt a sharp pain and immediate inability to bear weight. Left hip x-ray shows a left femoral neck hip fracture. Call placed to Dr. Gray for admission and surgical fixation. Current lab work-up is pending. EKG shows sinus rhythm with rate of 90 bpm, frequent PVCs, and significant artifact so we will repeat EKG. Last meal was at 1130 this morning. Related Data Home Medications Medication Instructions Recorded Confirmed ergocalciferol (vitamin D2) 1,250 50,000 unit PO MO@0900 cap 12/09/14 06/28/21 mcg (50,000 unit) capsule lamotrigine 100 mg tablet 200 mg PO BID tab 12/09/14 06/28/21 loxapine succinate 10 mg capsule 10 mg PO BID cap 12/09/14 06/28/21 benztropine 1 mg tablet 1 mg PO BID 30 Days #60 07/20/16 06/28/21 empagliflozin 10 mg tablet 10 mg PO QAM 10/21/20 06/28/21 (Jardiance) atorvastatin 40 mg tablet 20 mg PO DAILY 06/28/21 06/28/21 escitalopram oxalate 10 mg tablet 1 tab PO QDAY 06/28/21 06/28/21 insulin aspart U-100 100 unit/mL See Rx Instructions .ROUTE .COMPLEX 06/28/21 06/28/21 (3 mL) subcutaneous pen (Novolog Flexpen U-100 Insulin aspart) paliperidone palmitate 234 mg/1.5 234 mg IM Q28D 06/28/21 06/28/21 mL intramuscular syringe (Invega Sustenna) Previous Rx's Medication Instructions Recorded lancets (OneTouch UltraSoft #200 each 03/22/17 Lancets) Briefs Prevail Medium Pk #40 each 04/05/17 cetirizine 10 mg tablet 5 mg PO QHS #30 tab 08/16/17 blood sugar diagnostic (True #100 each 11/20/17 Metrix Glucose Test Strip) insulin aspart U-100 100 unit/mL See Rx Instructions SUB-Q .COMPLEX 02/28/18 (3 mL) subcutaneous pen #18 ml oxybutynin chloride 10 mg 10 mg PO QDAY #30 tab 04/17/18 tablet,extended release 24 hr pen needle, diabetic 32 gauge x #100 each 04/18/18 1/" (BD Ultra-Fine Micro Pen Needle) hydrocodone 5 mg-acetaminophen 325 1 tab PO TID-QID PRN #120 tab 05/02/18 mg tablet levothyroxine 112 mcg tablet 112 mcg PO QAM #30 tab 09/17/18 docusate sodium 100 mg capsule 100 mg PO BID #60 cap 10/25/20 hydrocodone 10 mg-acetaminophen 1 - 2 tab PO Q4HP PRN #75 tab 10/25/20 325 mg tablet aspirin 81 mg tablet,delayed 81 mg PO BID #60 tab 06/28/21 release (Ecotrin Low Strength) Allergies Allergy/AdvReac Type Severity Reaction Status Date / Time Penicillins Allergy Mild Hives Verified 06/28/21 17:03 [place] Allergy Mild Hives Verified 06/28/21 17:03 tetracycline [Tetracycline] Allergy Mild Hives Verified 06/28/21 12:33 Erythromycin Base AdvReac Mild Diarrhea Verified 06/28/21 17:03 Sulfa (Sulfonamide AdvReac Mild Itching Verified 06/28/21 17:03 Antibiotics) Review of Systems <Deja Orr PA-C - Last Filed: 06/28/21 20:33> ROS ROS Narrative: Narrative: All systems ED: reviewed and negative except as stated. 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) Hypertension, essential (Chronic) CKD (chronic kidney disease), stage II (Chronic 02/05/13) Urge incontinence (Chronic) skilled nursing current use of insulin (Chronic) Keratoconjunctivitis sicca not specified as Sjogren's (Chronic) Lattice degeneration of peripheral retina (Chronic) Overweight (Chronic) History of kidney stones (Chronic) Proteinuria (Chronic) Hypothyroidism (acquired) (Chronic) 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) Chronic schizoaffective disorder (Chronic) Stress incontinence, female (Chronic) Turners syndrome (Chronic) Vitamin D deficiency (Chronic) Hyperlipidemia (Chronic 04/03/06) Esophageal reflux (Chronic) Anemia in chronic kidney disease (Chronic) Medical History Adverse drug reaction CRYSTAL (acute kidney injury) Anemia in chronic kidney disease Chronic kidney disease, stage III (moderate) Chronic kidney disease, stage III (moderate) Chronic schizoaffective disorder CKD (chronic kidney disease), stage II (02/05/13) Dental abscess Diabetic ketoacidosis Diarrhea Dysuria Esophageal reflux Gastroenteritis History of kidney stones Hyperlipidemia (04/03/06) Recorded 04/03/06 mixed hyperlipidemia Hypertension, essential Hypertonicity of bladder (07/11/12) Hypoglycemia Hypothyroidism (acquired) Keratoconjunctivitis sicca not specified as Sjogren's Lattice degeneration of peripheral retina Left wrist injury skilled nursing current use of insulin Overweight Proteinuria Pustular eczema Repetitive strain injury of lower back Stress incontinence, female Turners syndrome Type 2 diabetes mellitus with renal manifestations Urge incontinence Urinary tract infection UTI (urinary tract infection) Vitamin D deficiency Vomiting Wrist Injury Surgical History History of adenoidectomy age 8 History of eye surgery R eye strabismus surgery age History of hysterectomy Recorded 04/03/06 with ovaries remaining -taken for cervical cancer History of tonsillectomy Family History Unknown Depression Cardiac disease Essential hypertension Grandmother(paternal)/92 Malignant neoplasm Resulted in Social History Smoking Status: Former smoker Alcohol Intake Frequency: does not drink Substance Use: does not use Exam <Deja Orr PA-C - Last Filed: 06/28/21 20:33> Narrative Narrative: General: AOx3, NAD, nontoxic appearing. Pleasant and conversant. HEENT: PERRL, EOMI, normocephalic. Moist mucous membranes. Normal facies and normal dentition. Chest: Symmetric, no pain to palpation Respiratory: Lungs clear to auscultation bilaterally. No respiratory distress. Unlabored breathing. Heart: Regular rate and rhythm, no murmurs/clicks/rubs. Abdomen: Non-tender, Non distended Extremities: Warm and well perfused. Left leg is shortened and externally rotated. She has pain to palpation along the greater trochanter and the left groin. No edema. DP 2+ bilaterally. No venous stasis. Neuro: No focal deficits. Cranial nerves II-XII grossly normal. She is moving all fours spontaneously. Skin: Warm dry, no rashes or lesions, no cyanosis. Psych: Normal mood and affect Heme/Lymph: No abnormal bruising General Limitations: physical limitation Course <Deja Orr PA-C - Last Filed: 06/28/21 20:33> Vital Signs Vital signs: Vital Signs Temperature 98.5 F 06/28/21 12:30 Pulse Rate 98 H 06/28/21 12:30 Respiratory Rate 20 06/28/21 12:30 Blood Pressure 166/101 06/28/21 12:30 Pulse Oximetry (%) 93 06/28/21 12:30 Temperature 97.5 F 06/29/21 07:11 Pulse Rate 82 06/29/21 07:11 Respiratory Rate 12 06/29/21 07:11 Blood Pressure 94/59 06/29/21 07:11 Pulse Oximetry (%) 96 06/29/21 07:11 [facility] <Deja Orr PA-C - Last Filed: 06/28/21 20:33> [facility] Narrative Medical decision making narrative: Left femoral neck hip fracture Lab work is currently pending. Patient has multiple comorbidities and will need admission with the hospitalist. I spoke with Dr. Gray who would like to take the patient for surgery this evening. Waiting hospitalist for admission signout. Lab Data Result diagrams: 06/29/21 05:11 06/29/21 05:11 Labs: Lab Results 06/28/21 06/28/21 06/28/21 Range/Units 13:45 13:45 13:45 WBC 10.1 (4.5-11.0) K/mcL RBC 4.92 (3.59-5.38) M/mcL Hgb 13.9 (11.2-15.7) g/dL Hct 40.4 (34.1-44.9) % MCV 82.1 (80.0-100.0) fL MCH 28.3 (26.0-34.0) pg MCHC 34.4 (31.0-36.0) g/dL RDW 13.2 (11.5-14.5) % Plt Count 124 L (140-440) K/mcL MPV 13.4 H (7.4-10.4) fL Neut % (Auto) 80.0 H (38.0-78.0) % Lymph % (Auto) 8.6 L (15.5-49.0) % [place] % (Auto) 10.8 (1.0-12.0) % Eos % (Auto) 0.2 (0.0-7.0) % Baso % (Auto) 0.4 (0.0-2.0) % Lymph # (Auto) 0.87 L (1.50-4.80) K/mcL [place] # (Auto) 1.10 H (0.10-0.90) K/mcL Eos # (Auto) 0.02 (0.00-0.70) K/mcL Baso # (Auto) 0.04 (0.00-0.30) K/mcL Absolute Neutrophils 8.11 H (1.80-8.00) K/mcL PT 13.3 (11.9-14.5) sec INR 1.0 (0.9-1.1) Sodium 137 (133-145) mmol/L Potassium 4.0 (3.3-5.1) mmol/L Chloride 101 (96-108) mmol/L Carbon Dioxide 20 L (22-30) mmol/L Anion Gap 16.0 (8.0-16.0) BUN 20 (6-20) mg/dL Creatinine 0.9 (0.6-1.1) mg/dL GFR Calculation 70 Glucose 206 H (70-105) mg/dL Hemoglobin A1c (4.0-6.0) % Hgb Estim Average Glucose mg/dL Calcium 9.4 (8.6-10.4) mg/dL Total Bilirubin 0.6 (0.1-1.0) mg/dL AST 19 (<32) U/L ALT 16 (<40) U/L Alkaline Phosphatase 98 (39-117) U/L Total Protein 6.4 (5.9-8.4) gm/dL Albumin 4.2 (3.2-5.2) gm/dL Globulin 2.2 (2.2-3.7) gm/dL Albumin/Globulin Ratio 1.9 (1.0-2.3) Urine Color Urine Appearance (Clear) Urine pH (5.0-9.0) Ur Specific [place] (1.000-1.035) Urine Protein (Negative) mg/dL Urine Glucose (UA) (Negative) mg/dL Urine Ketones (Negative) mg/dL Urine Occult Blood (Negative) eliezer/mcL Urine Nitrate (Negative) Urine Bilirubin (Negative) mg/dL Urine Urobilinogen mg/dL Ur Leukocyte Esterase (Negative) /uL Urine RBC (0-3) /hpf Urine WBC (0-4) /hpf Ur Squamous Epith Cells (0-4) /hpf Urine Bacteria (0) /hpf Ur Culture Indicated? 06/28/21 06/28/21 Range/Units 13:45 13:55 WBC (4.5-11.0) K/mcL RBC (3.59-5.38) M/mcL Hgb (11.2-15.7) g/dL Hct (34.1-44.9) % MCV (80.0-100.0) fL MCH (26.0-34.0) pg MCHC (31.0-36.0) g/dL RDW (11.5-14.5) % Plt Count (140-440) K/mcL MPV (7.4-10.4) fL Neut % (Auto) (38.0-78.0) % Lymph % (Auto) (15.5-49.0) % [place] % (Auto) (1.0-12.0) % Eos % (Auto) (0.0-7.0) % Baso % (Auto) (0.0-2.0) % Lymph # (Auto) (1.50-4.80) K/mcL [place] # (Auto) (0.10-0.90) K/mcL Eos # (Auto) (0.00-0.70) K/mcL Baso # (Auto) (0.00-0.30) K/mcL Absolute Neutrophils (1.80-8.00) K/mcL PT (11.9-14.5) sec INR (0.9-1.1) Sodium (133-145) mmol/L Potassium (3.3-5.1) mmol/L Chloride (96-108) mmol/L Carbon Dioxide (22-30) mmol/L Anion Gap (8.0-16.0) BUN (6-20) mg/dL Creatinine (0.6-1.1) mg/dL GFR Calculation Glucose (70-105) mg/dL Hemoglobin A1c 8.0 H (4.0-6.0) % Hgb Estim Average Glucose 183 mg/dL Calcium (8.6-10.4) mg/dL Total Bilirubin (0.1-1.0) mg/dL AST (<32) U/L ALT (<40) U/L Alkaline Phosphatase (39-117) U/L Total Protein (5.9-8.4) gm/dL Albumin (3.2-5.2) gm/dL Globulin (2.2-3.7) gm/dL Albumin/Globulin Ratio (1.0-2.3) Urine Color Yellow Urine Appearance Clear (Clear) Urine pH 6.0 (5.0-9.0) Ur Specific [place] 1.015 (1.000-1.035) Urine Protein 30 mg/dl A (Negative) mg/dL Urine Glucose (UA) 500 mg/dl A (Negative) mg/dL Urine Ketones Negative (Negative) mg/dL Urine Occult Blood Trace-lysed A (Negative) eliezer/mcL Urine Nitrate Negative (Negative) Urine Bilirubin Negative (Negative) mg/dL Urine Urobilinogen Normal mg/dL Ur Leukocyte Esterase Negative (Negative) /uL Urine RBC 0 (0-3) /hpf Urine WBC < 1 (0-4) /hpf Ur Squamous Epith Cells 0 (0-4) /hpf Urine Bacteria None (0) /hpf Ur Culture Indicated? No ED POC Tests ED POC Tests: JESSICA - SARS Antigen Negative HCG POC Results Negative Discharge Plan Patient/Caregiver Discharge Instructions Pt seen by VOICE INSTRUCTOR/PA only: Yes Clinical Impression: Fracture of femoral neck Activity: ambulate only with your walker and as per physical therapy Patient Disposition: Xfer As Inpt ([facility]) Condition: Fair Discharge Date/Time: 06/28/21 16:40
[2021-06-28 14:31] LABS: Prothrombin Time 13.3 sec (11.9-14.5)
[2021-06-28 14:40] LABS: ALT/SGPT 16 U/L (<40); AST/SGOT 19 U/L (<32); Albumin 4.2 gm/dL (3.2-5.2); Albumin/Globulin Ratio 1.9 (1.0-2.3); Alkaline Phosphatase 98 U/L (39-117); Bilirubin,Total 0.6 mg/dL (0.1-1.0); Blood Urea Nitrogen 20 mg/dL (6-20); Calcium 9.4 mg/dL (8.6-10.4); Carbon Dioxide 20 mmol/L (22-30); Chloride 101 mmol/L (96-108); Globulin 2.2 gm/dL (2.2-3.7); Glomerular Filtration Rate 70; Glucose 206 mg/dL (70-105)
[2021-06-28 14:50] LABS: Basophils # (Auto) 0.04 K/mcL (0.00-0.30); Basophils % (Auto) 0.4 % (0.0-2.0); Eosinophils # (Auto) 0.02 K/mcL (0.00-0.70); Eosinophils % (Auto) 0.2 % (0.0-7.0); Hematocrit 40.4 % (34.1-44.9); Hemoglobin 13.9 g/dL (11.2-15.7); Lymphocytes # (Auto) 0.87 K/mcL (1.50-4.80); Lymphocytes % (Auto) 8.6 % (15.5-49.0); Mean Cell Volume 82.1 fL (80.0-100.0); Mean Corpuscular HGB Conc 34.4 g/dL (31.0-36.0); Mean Platelet Volume 13.4 fL (7.4-10.4); Monocytes % (Auto) 10.8 % (1.0-12.0); Platelet Count 124 K/mcL (140-440); RBC 4.92 M/mcL (3.59-5.38); Red Cell Distribution Width 13.2 % (11.5-14.5); WBC 10.1 K/mcL (4.5-11.0)
[2021-06-28 15:52] LABS: Appearance,Urine Clear (Clear); Bilirubin,Urine Negative (Negative); Color,Urine Yellow; Culture Indicated,Urine No; Ketones,Urine Negative (Negative); Leukocyte Esterase,Urine Negative /uL (Negative); Nitrate,Urine Negative (Negative); Specific Gravity,Urine 1.015 (1.000-1.035); Urine Blood Trace-lysed ery/mcL (Negative); Urine RBC 0 /hpf (0-3); Urine Squamous Epithelial Cell 0 /hpf (0-4); Urine WBC < 1 /hpf (0-4); Urobilinogen,Urine Normal
[2021-06-28] MEDS ORDERED: ceFAZolin 2 GM in DEXTROSE 5% IN WATER 50 ML IV SCH ×2 (16:00→22:15)
--- NOTE | 2021-06-28 16:13 | Internal Med History&Physical ---
HPI History of Present Illness Patient information: Note initiated : 06/28/21 at 3:58 pm Service Date, if different from initiated Date: [] Patient: Padmaja Dillard a 60 y/o F admitted on for hip pain. Chief Complaint: [fall] Chief complaint: fall History of present illness: Ms. Dillard is a 60 year old F history of syndrome, schizoaffective disorder, type 2 diabetes mellitus, hypothyroidism, essential hypertension, mixed dyslipidemia, mixed dyslipidemia, systolic CHF with LVEF 48%, presenting with fall with resultant left hip fracture. She fell at home yesterday stating that there was a puddle of water on the ground. She did not pass out. She stayed about 15 to 20 minutes on the floor before she was found by assisted living staff. She was sent to the ED for further evaluations and imaging showed that there is mildly displaced, angulated transcervical fracture of the left hip. Vital signs showing mildly elevated blood pressure with systolic blood pressure in the 160s and diastolic blood pressure in the 100s mmHg. Labs significant for mildly elevated blood glucose of 206 with rest of the labs largely within normal limits. Orthopedic surgeon Dr. Mario notified[facility] I was notified to admit the patient for pre-op evaluation and post -op care. Constitutional Constitutional: Absent chills, excessive sweating, fatigue, fever(s) or weakness EENT Eyes: Absent blurry vision, change in vision, loss of vision or other visual disturbances Ears: Absent decreased hearing or tinnitus Nose, mouth and throat: Absent abnormal hearing, dry mouth, headache(s), nasal congestion or sore throat Cardiovascular Cardiovascular: Absent chest pain, chest pain at rest, edema, irregular heart rhythm or palpatations Respiratory Respiratory: Absent cough, dyspnea or wheezing Gastrointestinal Gastrointestinal: Absent abdominal pain, constipation, diarrhea, nausea or vomiting Musculoskeletal Musculoskeletal: Absent back pain, deformity, limited range of motion, muscle cramps, muscle weakness or numbness Additional comments: right hip pain 6-9/10 sharp constant Integumentary Integumentary: Absent lesions, rash or wounds Neurological Neurological: Absent focal weakness, headache(s) or numbness Psychiatric Psychiatric: Absent anxiety, depression or hallucinations PFSH PFSH All Active Problems (Updated 06/28/21 @ 16:06 by Hao Tapia MD) Closed left hip fracture (Acute) Hypoglycemia (Acute) Diabetes (Acute) Fracture of neck of left humerus (Acute) Fracture of femoral neck (Acute) Injury of foot, left (Acute) Right foot injury (Acute) 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) Hypertension, essential (Chronic) CKD (chronic kidney disease), stage II (Chronic 02/05/13) Urge incontinence (Chronic) USP current use of insulin (Chronic) Keratoconjunctivitis sicca not specified as Sjogren's (Chronic) Lattice degeneration of peripheral retina (Chronic) Overweight (Chronic) History of kidney stones (Chronic) Proteinuria (Chronic) Hypothyroidism (acquired) (Chronic) 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) Chronic schizoaffective disorder (Chronic) Stress incontinence, female (Chronic) Turners syndrome (Chronic) Vitamin D deficiency (Chronic) Hyperlipidemia (Chronic 04/03/06) Esophageal reflux (Chronic) Anemia in chronic kidney disease (Chronic) Medical History Adverse drug reaction CRYSTAL (acute kidney injury) Anemia in chronic kidney disease Chronic kidney disease, stage III (moderate) Chronic kidney disease, stage III (moderate) Chronic schizoaffective disorder CKD (chronic kidney disease), stage II (02/05/13) Dental abscess Diabetic ketoacidosis Diarrhea Dysuria Esophageal reflux Gastroenteritis History of kidney stones Hyperlipidemia (04/03/06) Recorded 04/03/06 mixed hyperlipidemia Hypertension, essential Hypertonicity of bladder (07/11/12) Hypoglycemia Hypothyroidism (acquired) Keratoconjunctivitis sicca not specified as Sjogren's Lattice degeneration of peripheral retina Left wrist injury manager long term care current use of insulin Overweight Proteinuria Pustular eczema Repetitive strain injury of lower back Stress incontinence, female Turners syndrome Type 2 diabetes mellitus with renal manifestations Urge incontinence Urinary tract infection UTI (urinary tract infection) Vitamin D deficiency Vomiting Wrist Injury Surgical History History of adenoidectomy age 8 History of eye surgery R eye strabismus surgery age History of hysterectomy Recorded 04/03/06 with ovaries remaining -taken for cervical cancer History of tonsillectomy Family History Unknown Depression Cardiac disease Essential hypertension Grandmother(paternal)/92 Malignant neoplasm Resulted in Social History physical activity: swimming and aerobics frequency: 1-2 times per week alcohol intake frequency: does not drink substance use type: does not use MEDS/ALLERGIES Home Medications and Allergies Home Medications Medication Instructions Recorded Confirmed Type ergocalciferol (vitamin D2) 1,250 50,000 unit PO MO@0900 cap 12/09/14 10/21/20 History mcg (50,000 unit) capsule lamotrigine 100 mg tablet 100 mg PO QHS tab 12/09/14 10/21/20 History loxapine succinate 10 mg capsule 10 mg PO BID cap 12/09/14 10/21/20 History benztropine 1 mg tablet 1 mg PO BID 30 Days #60 07/20/16 10/21/20 History lancets (OneTouch UltraSoft #200 each 03/22/17 12/02/19 Rx Lancets) Briefs Prevail Medium Pk #40 each 04/05/17 12/02/19 Rx cetirizine 10 mg tablet 5 mg PO QHS #30 tab 08/16/17 10/21/20 Rx escitalopram oxalate 20 mg tablet 20 mg PO QAM #30 tab 08/16/17 10/21/20 Rx blood sugar diagnostic (True #100 each 11/20/17 12/02/19 Rx Metrix Glucose Test Strip) atorvastatin 40 mg tablet 40 mg PO Q48H #15 tab 11/30/17 10/21/20 Rx insulin aspart U-100 100 unit/mL See Rx Instructions SUB-Q .COMPLEX 02/28/18 10/21/20 Rx (3 mL) subcutaneous pen #18 ml oxybutynin chloride 10 mg 10 mg PO QDAY #30 tab 04/17/18 10/21/20 Rx tablet,extended release 24 hr pen needle, diabetic 32 gauge x #100 each 04/18/18 12/02/19 Rx 1/4" (BD Ultra-Fine Micro Pen Needle) hydrocodone 5 mg-acetaminophen 325 1 tab PO TID-QID PRN #120 tab 05/02/18 10/21/20 Rx mg tablet insulin glargine 100 unit/mL (3 See Rx Instructions SUB-Q QHS ml 05/02/18 10/21/20 History mL) subcutaneous pen (Lantus Solostar U-100 Insulin) levothyroxine 112 mcg tablet 112 mcg PO QAM #30 tab 09/17/18 10/21/20 Rx empagliflozin 10 mg tablet 10 mg PO QAM 10/21/20 10/21/20 History (Jardiance) docusate sodium 100 mg capsule 100 mg PO BID #60 cap 10/25/20 Rx hydrocodone 10 mg-acetaminophen 1 - 2 tab PO Q4HP PRN #75 tab 10/25/20 Rx 325 mg tablet Allergies Allergy/AdvReac Type Severity Reaction Status Date / Time Erythromycin Base Allergy Intermediate Diarrhea Verified 06/28/21 12:33 Penicillins Allergy Intermediate Hives Verified 06/28/21 12:33 [place] Allergy Intermediate Hives Verified 06/28/21 12:33 Sulfa (Sulfonamide Allergy Intermediate Itching Verified 06/28/21 12:33 Antibiotics) tetracycline [Tetracycline] Allergy Mild Hives Verified 06/28/21 12:33 EXAM Constitutional Vitals: Temp Pulse Resp BP Pulse Ox 36.9 C 99 H 20 155/109 94 06/28/21 12:30 06/28/21 15:31 06/28/21 12:30 06/28/21 15:31 06/28/21 15:31 Extremities Exam Extremities exam: Present normal inspection and tenderness; Absent full ROM Additional comments: Left hip range of motion is limited by pain with tenderness to palpations DATA Data Completed and Pending Labs: Labs from last 24 hours 06/28/21 06/28/21 06/28/21 13:55 13:45 13:45 WBC RBC Hgb Hct MCV MCH MCHC RDW Plt Count MPV Neut % (Auto) Lymph % (Auto) [place] % (Auto) Eos % (Auto) Baso % (Auto) Lymph # (Auto) [place] # (Auto) Eos # (Auto) Baso # (Auto) Absolute Neutrophils PT 13.3 INR 1.0 Sodium 137 Potassium 4.0 Chloride 101 Carbon Dioxide 20 L Anion Gap 16.0 BUN 20 Creatinine 0.9 GFR Calculation 70 Glucose 206 H Calcium 9.4 Total Bilirubin 0.6 AST 19 ALT 16 Alkaline Phosphatase 98 Total Protein 6.4 Albumin 4.2 Globulin 2.2 Albumin/Globulin Ratio 1.9 Urine Color Yellow Urine Appearance Clear Urine pH 6.0 Ur Specific [place] 1.015 Urine Protein 30 mg/dl A Urine Glucose (UA) 500 mg/dl A Urine Ketones Negative Urine Occult Blood Trace-lysed A Urine Nitrate Negative Urine Bilirubin Negative Urine Urobilinogen Normal Ur Leukocyte Esterase Negative Urine RBC 0 Urine WBC < 1 Ur Squamous Epith Cells 0 Urine Bacteria None Ur Culture Indicated? No 06/28/21 13:45 WBC 10.1 RBC 4.92 Hgb 13.9 Hct 40.4 MCV 82.1 MCH 28.3 MCHC 34.4 RDW 13.2 Plt Count 124 L MPV 13.4 H Neut % (Auto) 80.0 H Lymph % (Auto) 8.6 L [place] % (Auto) 10.8 Eos % (Auto) 0.2 Baso % (Auto) 0.4 Lymph # (Auto) 0.87 L [place] # (Auto) 1.10 H Eos # (Auto) 0.02 Baso # (Auto) 0.04 Absolute Neutrophils 8.11 H PT INR Sodium Potassium Chloride Carbon Dioxide Anion Gap BUN Creatinine GFR Calculation Glucose Calcium Total Bilirubin AST ALT Alkaline Phosphatase Total Protein Albumin Globulin Albumin/Globulin Ratio Urine Color Urine Appearance Urine pH Ur Specific [place] Urine Protein Urine Glucose (UA) Urine Ketones Urine Occult Blood Urine Nitrate Urine Bilirubin Urine Urobilinogen Ur Leukocyte Esterase Urine RBC Urine WBC Ur Squamous Epith Cells Urine Bacteria Ur Culture Indicated? 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 Chronic kidney disease stage: stage 3 (moderate) Qualified Code(s): E11.22 - Type 2 diabetes mellitus with diabetic chronic kidney disease; N18.3 - Chronic kidney disease, stage 3 (moderate); Z79.4 - manager long term care (current) use of insulin (3) CKD (chronic kidney disease), stage II: Status: Chronic (4) Hypertension, essential: Status: Chronic (5) Hypothyroidism (acquired): Status: Chronic (6) Chronic schizoaffective disorder: Status: Chronic (7) Turners syndrome: Status: Chronic (8) Hyperlipidemia: Status: Chronic Comment: Recorded 04/03/06 mixed hyperlipidemia Narrative A/P Narrative: Assessment and Plans: 1. Closed left hip fracture: Admit to inpatient med surg NPO Bedrest D5LR@75cc/hr Consult Dr. Mario for surgical management Tylenol PRN fever or mild pain [place] PRN moderate pain Morphine IV PRN severe pain Physical therapy Occupational therapy 2. T2DM with diabetic renopathy: HgA1c Hold oral hypoglycemics Lantus 35 unit qAM Correctional scale insulin q6hr when NPO and AC HS when feeding Accu Chek q6hr when NPO and AC HS when feeding Hypoglycemia protocol NPO with D5LR@75cc/hr pre-op; diabetic diet post-op 3. Essential HTN: Add Lisinopril for better blood pressure control Hydralazine PRN SBP>=180 and/or DBP>=110mmHg 4. Mixed dyslipidemia: Continue statin therapy 5. Hypothyroidism: Continue thyroid replacement therapy 6. Mild systolic CHF with LVEF 48%: Gentle IV fluid D5LR@75cc/hr Lisinopril 7. Chronic schizoaffective disorder: Escitalopram Lamotrigine 8. Syndrome: Continue to monitor GI ppx: not currently indicated DVT ppx: SCDs Code status: Full Prognosis: stable Disposition: inpatient med surg; PT OT Time Spent With Patient Time: Total time spent is greater than 50% in coordination of care (as documented) at patient's floor/unit and/or counseling patient: Total time spent with greater than 50% in coordination of care (as documented) at patient's floor/unit and/or counseling patient:: Greater than 35 minutes
[2021-06-28] MEDS ORDERED: IPRATROPIUM/ALBUTEROL 3 ML AMPUL.NEB NEB PRN ×2 (16:51→23:25)
[2021-06-28] MEDS ORDERED: ZOLPIDEM 5 MG TABLET PO PRN (16:51)
[2021-06-28] MEDS ORDERED: hydrALAZINE 20 MG/ML VIAL IV PRN (16:51)
[2021-06-28] MEDS ORDERED: DEXTROSE 5%-LR 1,000 ML IV SCH (16:51)
[2021-06-28] MEDS ORDERED: DEXTROSE 50% 50 ML VIAL IV PRN ×2 (16:51)
[2021-06-28] MEDS ORDERED: ONDANSETRON 4 MG/2 ML VIAL IV PRN ×3 (16:51→22:18)
[2021-06-28] MEDS ORDERED: ACETAMINOPHEN 325 MG TABLET PO PRN (16:51)
[2021-06-28] MEDS ORDERED: DEXTROSE 31 GM ORAL.SUSP PO PRN (16:51)
[2021-06-28] MEDS ORDERED: HYDROcodone/APAP 10/325MG TABLET PO PRN (16:51)
[2021-06-28] MEDS: INSULIN LISPRO 1 UNIT/0.01 ML UNIT SQ SCH (18:42)
[2021-06-28] MEDS ORDERED: SCOPOLAMINE 1 PATCH PATCH TOPICAL PRN (18:47)
[2021-06-28] MEDS: 0.9 % SODIUM CHLORIDE 10 ML SYRINGE IV SCH (18:53)
[2021-06-28] MEDS: LISINOPRIL 10 MG TABLET PO SCH (18:58)
[2021-06-28] MEDS ORDERED: DOCUSATE SODIUM 100 MG CAPSULE PO SCH ×2 (21:00)
[2021-06-28] MEDS ORDERED: SENNOSIDES 1 TABLET PO SCH (21:00)
--- NOTE | 2021-06-28 21:56 | Discharge Plan ---
Discharge Instructions - GAYE Patient Instructions Total Hip Protocol: Follow activity instructions as provided by Physical Therapy. Dressing Care: May shower in 3 days and Aquacel Ag - leave on for 5 days Discharge Plan Patient/Caregiver Discharge Instructions Activity: ambulate only with your walker and as per physical therapy Diet: Regular Diet Prescriptions: New docusate sodium 100 mg capsule 100 mg PO BID Qty: 60 0RF hydrocodone-acetaminophen 10-325 mg tablet 1 - 2 tab PO Q4H PRN (Reason: pain) Qty: 75 0RF aspirin [Ecotrin Low Strength] 81 mg tablet,delayed release (DR/EC) 81 mg PO BID Qty: 60 0RF No Action (DME) Briefs Prevail Medium Pk Qty: 40 12RF Rx Instructions: Use as directed. escitalopram oxalate 20 mg tablet 20 mg PO QAM Qty: 30 12RF cetirizine 10 mg tablet 5 mg PO QHS Qty: 30 12RF (DME) blood sugar diagnostic [True Metrix Glucose Test Strip] strip See Dose Instructions .ROUTE .MEDSUPPLY Qty: 100 12RF Dose Instruction: As directed Rx Instructions: Use to test up to six times daily as directed insulin aspart U-100 100 unit/mL insulin pen See Rx Instructions SUB-Q .COMPLEX Qty: 18 11RF Dose Instruction: 150-199 - 4u, 200 -249 - 6u, 250-299 - 8u, 300-349 - 10u, over 350 12u SUB-Q administer within 5-10 min before a meal/food and no later than at the start of the meal/snack. Max 12 units.; administer within 5-10 min before a meal/food and no later than at the start of the meal/snack. Max 12 units. Label Comments: inject before each meal with carb counting to keep sugars under 160mg/dl 2 hours after eating Rx Instructions: Inject per sliding scale: 150-199 - 4u, 200 -249 - 6u, 250-299 - 8u, 300-349 - 10u, over 350 12u. oxybutynin chloride 10 mg tablet extended release 24hr 10 mg PO QDAY Qty: 30 12RF (DME) pen needle, diabetic [BD Ultra-Fine Micro Pen Needle] 32 gauge x 1/4" needle See Dose Instructions .ROUTE .MEDSUPPLY Qty: 100 12RF Dose Instruction: As directed Rx Instructions: Use four times daily to inject insulin as directed. hydrocodone-acetaminophen 5-325 mg tablet 1 tab PO TID-QID PRN (Reason: pain) Qty: 120 0RF loxapine succinate 10 mg capsule 10 mg PO BID 0RF ergocalciferol (vitamin D2) 50,000 unit capsule 50,000 unit PO MO@0900 0RF lamotrigine 100 mg tablet 100 mg PO QHS 0RF Label Comments: take 0.5 tablet by oral route once a day at bedtime benztropine 1 tablet 1 mg PO BID 30 Days Qty: 60 0RF (DME) lancets [OneTouch UltraSoft Lancets] misc See Dose Instructions .ROUTE .MEDSUPPLY Qty: 200 12RF Dose Instruction: As directed Rx Instructions: Use to test blood sugars twice daily as directed insulin glargine [Lantus Solostar U-100 Insulin] 100 unit/mL (3 mL) insulin pen See Rx Instructions SUB-Q QHS 0RF Label Comments: Inject 35 units QAM, 5 units QHS Rx Instructions: Inject 35 units QAM levothyroxine 112 mcg tablet 112 mcg PO QAM Qty: 30 12RF Rx Instructions: before meal Jardiance 10 mg Tablet 10 mg PO QAM 0RF hydrocodone-acetaminophen 10-325 mg Tablet 1 - 2 tab PO Q4HP PRN (Reason: Per Pain Protocol) Qty: 75 0RF docusate sodium 100 mg capsule 100 mg PO BID Qty: 60 0RF atorvastatin 40 mg tablet 20 mg PO DAILY 0RF Other Ambulatory Orders: Physical Therapy DC - GAYE (Routine) Location: None Selected Ordered By: Danny Lowery Toilet Riser Discharge Order (ONCE) Location: None Selected Ordered By: Danny Lowery Walker (ONCE) Location: None Selected Ordered By: Danny Lowery Follow Up Plan Follow up with: Ander Snyder MD [Primary Care Provider] - Danny Lowery PA-C [Physician Hall Cleaner] - Patient Disposition: Xfer SNF Prognosis: Fair Rehab Potential: Fair I certify that the patient requires SNF services: Yes Overall status at discharge: patient is progressing back to baseline Discharge Orders: Discharge Order (Routine); Ordered 07/01/21 Ordered By: Danny Lowery
[2021-06-28] MEDS ORDERED: TEMAZEPAM 15 MG CAPSULE PO PRN (22:18)
[2021-06-28] MEDS ORDERED: POLYETHYLENE GLYCOL 3350 17 GM PACKET PO PRN (22:18)
[2021-06-28] MEDS ORDERED: TRANEXAMIC ACID 1,000 MG/10 ML VIAL IV ONE (22:18)
[2021-06-28] MEDS ORDERED: HYDROmorphone 1 MG/ML SYRINGE IV PRN (22:18)
[2021-06-28] MEDS ORDERED: BISACODYL 10 MG SUPP.RECT PR PRN (22:18)
[2021-06-28] MEDS ORDERED: FLEETS ADULT ENEMA PR PRN (22:18)
[2021-06-28] MEDS ORDERED: MAGNESIUM HYDROXIDE 30 ML ORAL.SUSP PO PRN (22:18)
[2021-06-28] MEDS ORDERED: BENZOCAINE/MENTHOL 1 LOZENGE PO PRN ×2 (22:18→23:25)
--- NOTE | 2021-06-28 22:18 | Brief Operative Note ---
Brief Operative Note Date of procedure: 06/28/21 Pre-op diagnosis: left femoral neck fx Post-op diagnosis: same Procedure: left hip cemented hemiarthroplasty Grafts/Implants: Yes Anesthesia: GETA Complications: none Surgeon: rAthur Mario Checker Product Design: Danny Lowery Estimated blood loss (cc): 85 Specimens Removed/Pathology: none sent Condition: stable Disposition: PACU
[2021-06-28] MEDS ORDERED: ceFAZolin 1 GM VIAL IV SCH (22:30)
[2021-06-28] MEDS ORDERED: KETAMINE 50 MG/ML Syringe (ANEST) IV ONE (22:34)
[2021-06-28] MEDS ORDERED: DEXAMETHASONE 10 MG/ML VIAL ONE (22:34)
[2021-06-28] MEDS ORDERED: PROPOFOL 200 MG/20 ML VIAL IV ONE (22:34)
[2021-06-28] MEDS ORDERED: LIDOCAINE HCL/PF 100 MG/5 ML SYRINGE IV ONE (22:34)
[2021-06-28] MEDS ORDERED: PHENYLephrine 1 MG/10 ML SYRINGE (ANEST) ONE (22:34)
[2021-06-28] MEDS ORDERED: GLYCOPYRROLATE 0.2 MG/ML VIAL IV ONE (22:34)
[2021-06-28] MEDS ORDERED: MAGNESIUM SULFATE 2 GM/50 ML BAG IV ONE (22:34)
[2021-06-28] MEDS ORDERED: TRANEXAMIC ACID 1,000 MG/10 ML VIAL ONE ×2 (22:34→23:38)
[2021-06-28] MEDS ORDERED: ONDANSETRON 4 MG/2 ML VIAL ONE (22:34)
[2021-06-28] MEDS: LACTATED RINGERS 1,000 ML IV SCH (23:00)
[2021-06-28] MEDS ORDERED: HYDROmorphone 0.5 MG/0.5 ML SYRINGE IV PRN (23:25)
[2021-06-28] MEDS ORDERED: NALOXONE HCL 0.4 MG/ML VIAL IV PRN (23:25)
[2021-06-28] MEDS ORDERED: LACTATED RINGERS 250 ML IV PRN (23:25)
[2021-06-28] MEDS ORDERED: fentaNYL 100 MCG/2 ML VIAL IV PRN (23:25)
[2021-06-28] MEDS ORDERED: METHOCARBAMOL 1,000 MG/10 ML VIAL IV PRN (23:25)
[2021-06-28] MEDS ORDERED: ACETAMINOPHEN 1,000 MG/100 ML BAG IV ONE (23:25)
[2021-06-28] MEDS ORDERED: LABETALOL 5 MG/ML ML IV PRN (23:25)
[2021-06-28] MEDS ORDERED: METOPROLOL TARTRATE 5 MG/5 ML VIAL IV PRN (23:25)
[2021-06-28] MEDS ORDERED: GENTAMICIN SULFATE 800 MG/20 ML VIAL IR ONE (23:29)
[2021-06-28] MEDS ORDERED: LACTATED RINGERS 1,000 ML IV SCH (23:30)
[2021-06-29] MEDS: INSULIN LISPRO 1 UNIT/0.01 ML UNIT SQ SCH ×5 (00:03→20:41)
[2021-06-29] MEDS: 0.9 % SODIUM CHLORIDE 10 ML SYRINGE IV SCH ×4 (00:20→20:39)
[2021-06-29] MEDS: lamoTRIgine 100 MG TABLET PO SCH ×2 (00:31→20:45)
[2021-06-29] MEDS: CETIRIZINE 10 MG TABLET PO SCH ×2 (00:31→20:45)
[2021-06-29] MEDS: BENZTROPINE 1 MG TABLET PO SCH ×3 (00:32→20:45)
[2021-06-29] MEDS: LOXAPINE SUCCINATE 10 MG PO SCH ×3 (00:37→20:41)
[2021-06-29] MEDS ORDERED: ACETAMINOPHEN 1,000 MG/100 ML BAG IV ONE (00:37)
--- NOTE | 2021-06-29 03:45 | XRay Report ---
CLINICAL INFORMATION: Transcervical fracture left hip COMPARISON: None. FINDINGS: Left hip hemiarthroplasty is anatomically aligned. No osseous abnormality. Right hip and both SI joints show mild degeneration.. IMPRESSION: Left hip hemiarthroplasty in anatomic alignment Interpreted and Authenticated by: Vinay Vance 06/29/21
[2021-06-29] MEDS ORDERED: 0.9 % SODIUM CHLORIDE 10 ML SYRINGE IV SCH (06:00)
[2021-06-29] MEDS ORDERED: ceFAZolin 1 GM VIAL IV SCH (07:00)
[2021-06-29] MEDS ORDERED: ceFAZolin 2 GM in DEXTROSE 5% IN WATER 50 ML IV SCH (07:00)
[2021-06-29 07:09] LABS: Basophils # (Auto) 0.01 K/mcL (0.00-0.30); Basophils % (Auto) 0.1 % (0.0-2.0); Eosinophils # (Auto) 0 K/mcL (0.00-0.70); Eosinophils % (Auto) 0 % (0.0-7.0); Hematocrit 36.9 % (34.1-44.9); Hemoglobin 11.9 g/dL (11.2-15.7); Lymphocytes # (Auto) 0.44 K/mcL (1.50-4.80); Lymphocytes % (Auto) 5.3 % (15.5-49.0); Mean Cell Volume 86.4 fL (80.0-100.0); Mean Corpuscular HGB Conc 32.2 g/dL (31.0-36.0); Mean Platelet Volume 13.8 fL (7.4-10.4); Monocytes # (Auto) 0.42 K/mcL (0.10-0.90); Neutrophils % (Auto) 89.6 % (38.0-78.0); Platelet Count 105 K/mcL (140-440); RBC 4.27 M/mcL (3.59-5.38); Red Cell Distribution Width 13.6 % (11.5-14.5); WBC 8.4 K/mcL (4.5-11.0)
--- NOTE | 2021-06-29 07:09 | Consultation ---
DATE OF CONSULTATION: 06/28/2021 DATE OF ADMISSION: 06/28/2021. IDENTIFICATION: A pleasant 60-year-old female. ADMITTING DIAGNOSIS: Right hip pain after a fall. HISTORY OF PRESENT ILLNESS: This is a pleasant 60-year-old female with a history of developmental delay, stage III chronic kidney disease and insulin-dependent diabetes with some cardiomyopathy with an ejection fraction 48%, fell last night and immediately tried to walk this morning, felt pain and inability to bear weight. She was then transported to the hospital via EMS and diagnosed with a right femoral neck fracture. The emergency room course included an EKG showing sinus rhythm with a heart rate of 90 beats per minute, frequent PVCs and a lot of artifact, so the EKG was repeated thereafter. PAST MEDICAL HISTORY: Remarkable for hypoglycemia, diabetes, acute left humeral neck fracture, right foot injury, acute kidney injuries, chronic kidney disease stage III, schizoaffective disorder, dental abscess, diabetic ketoacidosis, diarrhea, dysuria, esophageal reflux, gastroenteritis, history of kidney stones, hyperlipidemia, hypertension, hypertonicity of the bladder, hypothyroidism, Sjogren's, peripheral retinopathy, left wrist pain, chronic insulin use, overweight, proteinuria, pustular eczema, low back pain, stress incontinence, syndrome, type 2 diabetes with renal manifestations, urge incontinence, urinary tract infection, history of vitamin D deficiency, vomiting and multiple wrist injuries. PAST SURGICAL HISTORY: Includes an adenectomy, eye surgery, hysterectomy, and tonsillectomy. FAMILY HISTORY: Fairly unknown, but remarkable for depression, cardiac disease, essential hypertension, and neoplasm in her grandmother. SOCIAL HISTORY: She was a former smoker, does not currently drink or use illicit drugs. PHYSICAL EXAMINATION: GENERAL: Current exam demonstrated the patient lying comfortably in the emergency room [facility]. She is awake, alert, oriented x 3. She did have a little bit of speech impediment, but was a good historian otherwise. VITAL SIGNS: All stable with recent vital signs demonstrating temperature 98.5, pulse 98, respirations 20, blood pressure 166/101, pulse ox 94% on room air. HEENT: Head is normocephalic. No evidence of any head trauma with the fall. Pupils equal, round, reactive to light. No nystagmus or strabismus. NECK: Supple. No adenopathy or thyromegaly. CHEST: Clear to auscultation. No wheezing, rhonchi, or rales. HEART: Normal sinus rhythm. No gallops, rubs, or murmurs. ABDOMEN: Soft and nontender. EXTREMITIES: Left leg is short and externally rotated. She had pain over the greater trochanter and in the groin. She was neurovascularly stable distally with warm, pink extremities, strong distal pulses. IMAGING REVIEW: Joint consultation with Dr. Mario, radiographs in the office from the emergency department demonstrated a displaced femoral neck fracture. MEDICAL DECISION MAKING: We recommended that the patient be admitted by hospitalist due to her multiple medical problems and comorbidities and be cleared prior to surgery by hospitalist care. The recommendation would be for surgical intervention of the left hip with a cemented kirill hip arthroplasty. The benefits, risks, and alternatives were discussed with the patient at length that include but are not necessarily limited to complications with anesthesia, heart attack, stroke, or , blood loss that could require blood transfusion with the secondary risk of acquisition of HIV, hepatitis or AIDS, infection that could require future multiple surgeries and/or long-term IV antibiotics, injury to adjacent blood vessels or nerves, that could result in chronic pain or paresthesias. While these are not all inclusive, they were discussed with the patient. She understands the procedure and consents to this procedure as it has been described and explained to her. The patient will likely require some additional care following surgery due to all of her medical problems and may very well require a custodial stay following surgery for a period of 2-3 weeks until she can get back to her baseline where she was prior to the injury. BAP:jeremy Job ID: [id number] Doc ID: [id number] Danny Lowery PA-C
--- NOTE | 2021-06-29 07:11 | Orthopedic Progress Note ---
SUBJECTIVE Subjective Patient information: Note initiated : 06/29/21 at 7:09 am Service Date, if different from initiated Date: [] Patient: Padmaja Dillard 60 y/o F admitted on 06/28/21 for hip pain. Chief Complaint: [] Principal diagnosis: left hip fx Constitutional Vitals: Vital Signs Temp Pulse Resp BP Pulse Ox 98.6 F 90 12 102/66 92 06/29/21 04:22 06/29/21 04:22 06/29/21 04:22 06/29/21 04:22 06/29/21 04:22 Period Temp Pulse Resp BP Sys/[place]ard Pulse Ox Last 24 Hr 96.5 F-98.6 F 30-118 12-28 100-180/66-114 91-100 Intake and Output 06/28/21 06/29/21 06/29/21 21:59 05:59 13:59 Intake Total 238 1625 Output Total 900 Balance 238 725 Weight 115 lb 4.8 oz Intake & Output: Intake & Output 06/28/21 06/29/21 06/29/21 21:59 05:59 13:59 Intake Total 238 1625 Output Total 900 Balance 238 725 Weight 115 lb 4.8 oz Intake: IV 238 50 Dextrose 5%-Lactated Ringers 1, 188 0 000 ml @ 75 mls/hr IV .[id number] [facility] Rx#:[id number] Ancef 2 gm In Dextrose 5% in 50 50 Water 50 ml @ 100 mls/hr IV PREOP [facility] Rx#:[id number] Oral 375 IV - Manual Only 1200 Output: Urine Catheter Amount 900 Other: Urine Appearance Clear Uretheral ([place]) Clear Urine Color Bright Yellow Uretheral ([place]) Bright Yellow Extremities Exam Extremities exam: Present joint swelling, Foot pink and warm and neurovascular intact Neurological Exam Neurological exam: Present alert, CN II-XII intact and normal gait OBJ DATA Labs CBC & Chem 7: 06/29/21 05:11 06/28/21 13:45 Labs: Abnormal Lab Results 06/29/21 06/28/21 06/28/21 05:11 13:55 13:45 Plt Count 105 L MPV 13.8 H Neut % (Auto) 89.6 H Lymph % (Auto) 5.3 L Lymph # (Auto) 0.[address] [facility] # (Auto) Absolute Neutrophils Carbon Dioxide Glucose Hemoglobin A1c 8.0 H Urine Protein 30 mg/dl A Urine Glucose (UA) 500 mg/dl A Urine Occult Blood Trace-lysed A 06/28/21 06/28/21 13:45 13:45 Plt Count 124 L MPV 13.4 H Neut % (Auto) 80.0 H Lymph % (Auto) 8.6 L Lymph # (Auto) 0.[address] [facility] # (Auto) 1.10 H Absolute Neutrophils 8.11 H Carbon Dioxide 20 L Glucose 206 H Hemoglobin A1c Urine Protein Urine Glucose (UA) Urine Occult Blood Meds: Medications Acetaminophen (Acetaminophen 325 Mg Tablet) 650 mg PO Q6HP PRN; Protocol PRN Reason: Per Pain Protocol/Fever > 101 Hydrocodone Bitart/Acetaminophen (Hydrocodone/Apap 10/325mg Tablet) 1 - 2 tab PO Q4HP PRN; Protocol PRN Reason: Per Pain Protocol Albuterol/Ipratropium (Ipratropium/Albuterol 3 Ml Ampul.Neb) 3 ml NEB Q4HRT PRN PRN Reason: Wheezing Aspirin (Aspirin 81 Mg Tab.Chew) 81 mg CHEWED BID [facility] Atorvastatin Calcium (Atorvastatin 40 Mg Tablet) 40 mg PO Q48@2100 [facility] Benztropine Mesylate (Benztropine 1 Mg Tablet) 1 mg PO BID [facility] Last Admin: 06/29/21 00:32 Dose: 1 mg Documented by: Bisacodyl (Bisacodyl 10 Mg Supp.Rect) 10 mg AL Q2-3DAYS PRN PRN Reason: Constipation Cefazolin Sodium (Cefazolin 1 Gm Vial) 2 gm IV Q8H [facility] Stop: 06/29/21 15:01 Cetirizine HCl (Cetirizine 10 Mg Tablet) 5 mg PO QHS [facility] Last Admin: 06/29/21 00:31 Dose: 5 mg Documented by: Dextrose (Dextrose 50% 50 Ml Vial) 0 ml IV UD PRN PRN Reason: Hypoglycemia Diagnostic Test (Pha) (Accu-Chek 1 Each Strip) 1 each FS ACHS [facility] Docusate Sodium (Docusate Sodium 100 Mg Capsule) 100 mg PO BID [facility] Ergocalciferol (Ergocalciferol (Vitamin D2) 50,000 Unit Capsule) 50,000 unit PO MO@0900 [facility] Escitalopram Oxalate (Escitalopram 20 Mg Tablet) 20 mg PO QAM [facility] Glucose (Dextrose 31 Gm Oral.Susp) 15 gm PO PRN PRN PRN Reason: Hypoglycemia Hydralazine HCl (Hydralazine 20 Mg/Ml Vial) 10 mg IV Q4-6HP PRN PRN Reason: Hypertension Hydromorphone HCl (Hydromorphone 1 Mg/Ml Syringe) 0.5 - 2 mg IV Q2HP PRN; Protocol PRN Reason: Per Pain Protocol Lactated Ringer's (Lactated Ringers) 1,000 mls @ 100 mls/hr IV .Q10H [facility] Last Admin: 06/28/21 23:00 Dose: 100 mls/hr Documented by: Insulin Glargine (Insulin Glargine, Human 1 Unit/0.01 Ml) 35 unit SQ DAILY [facility] Insulin Human Lispro (Insulin Lispro 1 Unit/0.01 Ml Unit) 0 unit SQ ACHS [facility]; Protocol Lamotrigine (Lamotrigine 100 Mg Tablet) 100 mg PO QHS [facility] Last Admin: 06/29/21 00:31 Dose: 100 mg Documented by: Levothyroxine Sodium (Levothyroxine Sodium 112 Mcg Tablet) 112 mcg PO QAMAC [facility] Lisinopril (Lisinopril 10 Mg Tablet) 10 mg PO DAILY [facility] Last Admin: 06/28/21 18:58 Dose: 10 mg Documented by: Magnesium Hydroxide (Magnesium Hydroxide 30 Ml Oral.Susp) 30 ml PO BIDP PRN PRN Reason: Constipation Morphine Sulfate (Morphine 4 Mg/Ml Vial) 4 mg IV Q2HP PRN; Protocol PRN Reason: Per Pain Protocol Last Admin: 06/28/21 20:38 Dose: 4 mg Documented by: Ondansetron HCl (Ondansetron 4 Mg/2 Ml Vial) 4 mg IV Q4HP PRN; Protocol PRN Reason: Nausea And Vomiting Oxybutynin Chloride (Oxybutynin Chloride 5 Mg Tab.Xl.24h) 10 mg PO QDAY [facility] Loxapine Succinate (10 Mg Capsule) 1 dose PO BID [facility] Last Admin: 06/29/21 00:37 Dose: Not Given Documented by: Polyethylene Glycol (Polyethylene Glycol 3350 17 Gm Packet) 17 gm PO DAILYP PRN PRN Reason: Constipation Senna (Sennosides 1 Tablet) 2 tab PO HS [facility] Sodium Biphosphate/Sodium Phosphate (Fleets Adult Enema) 1 dose AL Q3-4DAYS PRN PRN Reason: Constipation Sodium Chloride (0.9 % Sodium Chloride 10 Ml Syringe) 10 ml IV Q8 [facility] Last Admin: 06/29/21 05:53 Dose: Not Given Documented by: Temazepam (Temazepam 15 Mg Capsule) 15 mg PO HSP PRN PRN Reason: Insomnia Throat Lozenges (Benzocaine/Menthol 1 Lozenge) 1 lozenge PO PRN PRN PRN Reason: Sore Throat Zolpidem Tartrate (Zolpidem 5 Mg Tablet) 5 mg PO HSP PRN PRN Reason: Insomnia Last Admin: 06/29/21 01:15 Dose: 5 mg Documented by: A/P Narrative A/P Narrative: dc home Time Spent With Patient Time: Total time spent is greater than 50% in coordination of care (as documented) at patient's floor/unit and/or counseling patient: Total time spent with greater than 50% in coordination of care (as documented) at patient's floor/unit and/or counseling patient:: less than 15 minutes
[2021-06-29] MEDS: LEVOTHYROXINE SODIUM 112 MCG TABLET PO SCH (07:41)
[2021-06-29] MEDS: ceFAZolin 1 GM VIAL IV SCH ×2 (07:48→17:18)
[2021-06-29 07:51] LABS: Blood Urea Nitrogen 20 mg/dL (6-20); Calcium 8.4 mg/dL (8.6-10.4); Carbon Dioxide 19 mmol/L (22-30); Chloride 100 mmol/L (96-108); Glomerular Filtration Rate 81; Glucose 175 mg/dL (70-105); Phosphorous 4.2 mg/dL (2.5-4.5)
[2021-06-29] MEDS: HYDROcodone/APAP 10/325MG TABLET PO PRN ×3 (08:11→23:41)
[2021-06-29] MEDS: DOCUSATE SODIUM 100 MG CAPSULE PO SCH ×2 (08:26→20:45)
[2021-06-29] MEDS: OXYBUTYNIN CHLORIDE 5 MG TAB.XL.24H PO SCH (08:26)
[2021-06-29] MEDS: ASPIRIN 81 MG TAB.CHEW CHEWED SCH ×2 (08:26→20:45)
[2021-06-29] MEDS: ESCITALOPRAM 20 MG TABLET PO SCH (08:26)
[2021-06-29] MEDS: INSULIN GLARGINE, HUMAN 1 UNIT/0.01 ML SQ SCH (08:27)
[2021-06-29] MEDS: LACTATED RINGERS 1,000 ML IV SCH ×2 (09:24→17:12)
[2021-06-29] MEDS: LISINOPRIL 10 MG TABLET PO SCH (09:30)
--- NOTE | 2021-06-29 10:00 | Operative Note ---
DATE OF OPERATION: 06/28/2021 PREOPERATIVE DIAGNOSIS: Left femoral neck fracture, displaced after a same level fall. POSTOPERATIVE DIAGNOSIS: Left femoral neck fracture, displaced after a same level fall. PROCEDURE: Left total hip arthroplasty with a cementless [place] stem with a small amount of cement distally for early fixation with a hemiarthroplasty. SURGEON: Arthur Mario M.D. CONSTRUCTION TRADES TEACHER: Danny Lowery PA-C. This providers expertise and technical skill were required throughout the case. The ELIEZER assisted with preoperative coordination, intraoperative retraction, wound closure, and dressing and splint application, as well as postoperative documentation and care coordination. ANESTHESIA: General LMA anesthesia. COMPLICATIONS: None. IMPLANTS: Anato stem, size per nurse's note; unipolar head, per nurse's note. IV MEDICATIONS: Preoperative antibiotics and tranexamic acid given. DESCRIPTION OF PROCEDURE: The patient was brought to the operating room, turned into right lateral position, and we sterilely prepped the left hip. Timeout was performed, confirming the left hip was the operative site by initials, consent form, and x-ray. Ioban was placed over the skin. We made a superior posterior approach to the hip, identified the gluteus saranya. We then dissected through the superior capsule. Once this was done, we were able to then dislocate the hip and remove the fractured head. It was completely disassociated from the neck. This was sized and then we broached up on the femur. Once we broached up, we then trialed the components and the hip was very stable, equal leg length. We then sterilely prep the canal and we cemented a small portion after freshening the cut on the femoral neck and broached up to the final size. We trialed the size ahead perfectly equal to the size that we removed, this was reduced, we irrigated thoroughly and this was very stable. Once reduced, we placed the final implants. We then closed the capsule with #2 Ethibond and then closed the fascial layer with #1 Stratafix. Skin was closed with adhesive closure. Sterile bandage was applied. There were no complications. Blood loss approximately 90 mL. RBH:esperanza Job ID: [id number] Doc ID: [id number] Arthur Mario MD
--- NOTE | 2021-06-29 11:25 | Internal Med Progress Note ---
SUBJECTIVE Subjective Patient information: Note initiated : 06/29/21 at 11:19 am Service Date, if different from initiated Date: [] Patient: Padmaja Dillard a 60 y/o F admitted on 06/28/21 for hip pain. Chief Complaint: [] Principal diagnosis: left hip fx Interval history: Ms. Dillard is a 60 year old F history of syndrome, schizoaffective disorder, type 2 diabetes mellitus, hypothyroidism, essential hypertension, m ixed dyslipidemia, mixed dyslipidemia, systolic CHF with LVEF 48%, presenting with fall with resultant left hip fracture. She fell at home yesterday stating that there was a puddle of water on the ground. She did not pass out. She stayed about 15 to 20 minutes on the floor before she was found by assisted living staff. She was sent to the ED for further evaluations and imaging showed that there is mildly displaced, angulated transcervical fracture of the left hip. Vital signs showing mildly elevated blood pressure with systolic blood pressure in the 160s and diastolic blood pressure in the 100s mmHg. Labs significant for mildly elevated blood glucose of 206 with rest of the labs largely within normal limits. Orthopedic surgeon Dr. Mario notified, [facility] I was notified to admit the patient for pre-op evaluation and post -op care. 06/29: s/p elft total hip arthroplasty. Tolerated the surgery well. c/o 5/0 aching pain of the left hip. No bowel movement yet after the surgery. Denies shortness of breath. Pertinent ROS: c/o 5/0 aching pain of the left hip. No bowel movement yet after the surgery. Denies shortness of breath. Constitutional Vitals: Vital Signs Temp Pulse Resp BP Pulse Ox 36.4 C 82 12 94/59 96 06/29/21 07:11 06/29/21 07:11 06/29/21 07:11 06/29/21 07:11 06/29/21 10:00 Period Temp Pulse Resp BP Sys/[place]ard Pulse Ox Last 24 Hr 35.8 C-37.0 C 30-118 12-28 94-180/59-114 91-100 Intake and Output 06/28/21 06/29/21 06/29/21 21:59 05:59 13:59 Intake Total 238 1725 1240 Output Total 900 Balance 947 567 5079 Weight 52.299 kg Intake & Output: Intake & Output 06/28/21 06/29/21 06/29/21 21:59 05:59 13:59 Intake Total 238 1725 1240 Output Total 900 Balance 012 281 2264 Weight 52.299 kg Intake: IV 835 606 9390 Dextrose 5%-Lactated Ringers 1, 188 0 000 ml @ 75 mls/hr IV .[id number] DIANA Rx#:[id number] Lactated Ringers 1,000 ml @ 100 1000 mls/hr IV .Q10H DIANA Rx#: [id number] Ancef 2 gm In Dextrose 5% in 50 50 Water 50 ml @ 100 mls/hr IV PREOP DIANA Rx#:[id number] Oral 375 240 IV - Manual Only 1200 Output: Urine Catheter Amount 900 Other: Meal Breakfast Percent of Meal Consumed 75% Feeding Ability Independent Urine Appearance Clear [place]re[place] ([place]) Clear Urine Color Bright Yellow [place]re[place] ([place]) Bright Yellow General appearance: average body habitus, cooperative and no acute distress Head Head exam: Present atraumatic and normal inspection Eye Eye exam: Present normal appearance ENT ENT exam: Present mucous membranes moist, normal exam and normal external ear exam Neck Neck exam: Present normal inspection Respiratory Respiratory exam: Present normal respiratory exam Cardiovascular Cardiovascular exam: Present normal rate and rhythm GI/Abdominal GI/Abdominal exam: Present normal bowel sounds Extremities Exam Extremities exam: Present tenderness; Absent full ROM or normal inspection Additional comments: Left lateral hip covered by surgical dressing with active and passive ROMs limited by pain Back Exam Back exam: Present normal inspection Neurological Exam Neurological exam: Present alert and oriented X3 Skin Skin exam: Present intact and warm OBJ DATA Labs CBC & Chem 7: 06/29/21 05:11 06/29/21 05:11 Labs: Abnormal Lab Results 06/29/21 06/29/21 06/28/21 05:11 05:11 13:55 Plt Count 105 L MPV 13.8 H Neut % (Auto) 89.6 H Lymph % (Auto) 5.3 L Lymph # (Auto) 0.44 L [place] # (Auto) Absolute Neutrophils Carbon Dioxide 19 L Glucose 175 H Hemoglobin A1c Calcium 8.4 L Urine Protein 30 mg/dl A Urine Glucose (UA) 500 mg/dl A Urine Occult Blood Trace-lysed A 06/28/21 06/28/21 06/28/21 13:45 13:45 13:45 Plt Count 124 L MPV 13.4 H Neut % (Auto) 80.0 H Lymph % (Auto) 8.6 L Lymph # (Auto) 0.87 L [place] # (Auto) 1.10 H Absolute Neutrophils 8.11 H Carbon Dioxide 20 L Glucose 206 H Hemoglobin A1c 8.0 H Calcium Urine Protein Urine Glucose (UA) Urine Occult Blood Meds: Medications Acetaminophen (Acetaminophen 325 Mg Tablet) 650 mg PO Q6HP PRN; Protocol PRN Reason: Per Pain Protocol/Fever > 101 Hydrocodone Bitart/Acetaminophen (Hydrocodone/Apap 10/325mg Tablet) 1 - 2 tab PO Q4HP PRN; Protocol PRN Reason: Per Pain Protocol Last Admin: 06/29/21 08:11 Dose: 1 tab Documented by: Albuterol/Ipratropium (Ipratropium/Albuterol 3 Ml Ampul.Neb) 3 ml NEB Q4HRT PRN PRN Reason: Wheezing Aspirin (Aspirin 81 Mg Tab.Chew) 81 mg CHEWED BID [facility] Last Admin: 06/29/21 08:26 Dose: 81 mg Documented by: Atorvastatin Calcium (Atorvastatin 40 Mg Tablet) 40 mg PO Q48@2100 [facility] Benztropine Mesylate (Benztropine 1 Mg Tablet) 1 mg PO BID [facility] Last Admin: 06/29/21 08:26 Dose: 1 mg Documented by: Bisacodyl (Bisacodyl 10 Mg Supp.Rect) 10 mg [place] Q2-3DAYS PRN PRN Reason: Constipation Cefazolin Sodium (Cefazolin 1 Gm Vial) 2 gm IV Q8H [facility] Stop: 06/29/21 15:01 Last Admin: 06/29/21 07:48 Dose: 2 gm Documented by: Cetirizine HCl (Cetirizine 10 Mg Tablet) 5 mg PO QHS [facility] Last Admin: 06/29/21 00:31 Dose: 5 mg Documented by: Dextrose (Dextrose 50% 50 Ml Vial) 0 ml IV UD PRN PRN Reason: Hypoglycemia Diagnostic Test (Pha) (Accu-Chek 1 Each Strip) 1 each FS ACHS [facility] Last Admin: 06/29/21 08:01 Dose: 1 each Documented by: Docusate Sodium (Docusate Sodium 100 Mg Capsule) 100 mg PO BID [facility] Last Admin: 06/29/21 08:26 Dose: 100 mg Documented by: Ergocalciferol (Ergocalciferol (Vitamin D2) 50,000 Unit Capsule) 50,000 unit PO MO@0900 [facility] Escitalopram Oxalate (Escitalopram 20 Mg Tablet) 20 mg PO QAM [facility] Last Admin: 06/29/21 08:26 Dose: 20 mg Documented by: Glucose (Dextrose 31 Gm Oral.Susp) 15 gm PO PRN PRN PRN Reason: Hypoglycemia Hydralazine HCl (Hydralazine 20 Mg/Ml Vial) 10 mg IV Q4-6HP PRN PRN Reason: Hypertension Hydromorphone HCl (Hydromorphone 1 Mg/Ml Syringe) 0.5 - 2 mg IV Q2HP PRN; Protocol PRN Reason: Per Pain Protocol Lactated Ringer's (Lactated Ringers) 1,000 mls @ 100 mls/hr IV .Q10H [facility] Last Infusion: 06/29/21 09:24 Dose: Infused Documented by: Insulin Glargine (Insulin Glargine, Human 1 Unit/0.01 Ml) 35 unit SQ DAILY [facility] Last Admin: 06/29/21 08:27 Dose: 35 unit Documented by: Insulin Human Lispro (Insulin Lispro 1 Unit/0.01 Ml Unit) 0 unit SQ ACHS [facility]; Protocol Last Admin: 06/29/21 08:13 Dose: 2 unit Documented by: Lamotrigine (Lamotrigine 100 Mg Tablet) 100 mg PO QHS [facility] Last Admin: 06/29/21 00:31 Dose: 100 mg Documented by: Levothyroxine Sodium (Levothyroxine Sodium 112 Mcg Tablet) 112 mcg PO QAMAC [facility] Last Admin: 06/29/21 07:41 Dose: 112 mcg Documented by: Lisinopril (Lisinopril 10 Mg Tablet) 10 mg PO DAILY [facility] Last Admin: 06/29/21 09:30 Dose: Not Given Documented by: Magnesium Hydroxide (Magnesium Hydroxide 30 Ml Oral.Susp) 30 ml PO BIDP PRN PRN Reason: Constipation Morphine Sulfate (Morphine 4 Mg/Ml Vial) 4 mg IV Q2HP PRN; Protocol PRN Reason: Per Pain Protocol Last Admin: 06/28/21 20:38 Dose: 4 mg Documented by: Ondansetron HCl (Ondansetron 4 Mg/2 Ml Vial) 4 mg IV Q4HP PRN; Protocol PRN Reason: Nausea And Vomiting Oxybutynin Chloride (Oxybutynin Chloride 5 Mg Tab.Xl.24h) 10 mg PO QDAY [facility] Last Admin: 06/29/21 08:26 Dose: 10 mg Documented by: Loxapine Succinate (10 Mg Capsule) 1 dose PO BID [facility] Last Admin: 06/29/21 09:46 Dose: Not Given Documented by: Polyethylene Glycol (Polyethylene Glycol 3350 17 Gm Packet) 17 gm PO DAILYP PRN PRN Reason: Constipation Senna (Sennosides 1 Tablet) 2 tab PO [facility] Sodium Biphosphate/Sodium Phosphate (Fleets Adult Enema) 1 dose [place] Q3-4DAYS PRN PRN Reason: Constipation Sodium Chloride (0.9 % Sodium Chloride 10 Ml Syringe) 10 ml IV Q8 [facility] Last Admin: 06/29/21 05:53 Dose: Not Given Documented by: Temazepam (Temazepam 15 Mg Capsule) 15 mg PO HSP PRN PRN Reason: Insomnia Throat Lozenges (Benzocaine/Menthol 1 Lozenge) 1 lozenge PO PRN PRN PRN Reason: Sore Throat Zolpidem Tartrate (Zolpidem 5 Mg Tablet) 5 mg PO HSP PRN PRN Reason: Insomnia Last Admin: 06/29/21 01:15 Dose: 5 mg Documented by: A/P Assessment and plan (1) Closed left hip fracture: Status: Acute (2) Type 2 diabetes mellitus with renal manifestations: Status: Chronic Qualifiers: Diabetes mellitus complication detail: with chronic kidney disease Diabetes mellitus termite treater helper insulin use: with usp use Chronic kidney disease stage: stage 3 (moderate) Qualified Code(s): E11.22 - Type 2 diabetes mellitus with diabetic chronic kidney disease; N18.3 - Chronic kidney disease, stage 3 (moderate); 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 Closed left hip fracture: s/p left total hip arthroplasty on 06/28 Stays in inpatient med surg Diabetic diet Up to chair PRN LR@100cc/hr Tylenol PRN fever or mild pain [facility] PRN moderate pain Morphine IV PRN severe pain Physical therapy Occupational therapy 2. T2DM with diabetic renopathy: HgA1c 8.0 Hold oral hypoglycemics Lantus 35 unit qAM Correction[facility] scale insulin q6hr when NPO and AC HS when feeding Accu Chek q6hr when NPO and AC HS when feeding Hypoglycemia protocol Diabetic diet 3. Essential HTN: Add Lisinopril for better blood pressure control Hydralazine PRN SBP>=180 and/or DBP>=110mmHg 4. Mixed dyslipidemia: Continue statin therapy 5. Hypothyroidism: Continue thyroid replacement therapy 6. Mild systolic CHF with LVEF 48%: Gentle IV fluid LR@100cc/hr Lisinopril 7. Chronic schizoaffective disorder: Escitalopram Lamotrigine 8. Syndrome: Continue to monitor GI ppx: not currently indicated DVT ppx: SCDs Code status: Full Prognosis: stable Disposition: inpatient med surg; PT OT Time Spent With Patient Time: Total time spent is greater than 50% in coordination of care (as documented) at patient's floor/unit and/or counseling patient: Total time spent with greater than 50% in coordination of care (as documented) at patient's floor/unit and/or counseling patient:: Greater than 35 minutes QUALITY VTE Deep Vein Thrombosis/Pulmonary Embolism Present on Admission: No
--- NOTE | 2021-06-29 17:23 | Internal Med Progress Note ---
SUBJECTIVE Subjective Patient information: Note initiated : 06/29/21 at 5:18 pm Service Date, if different from initiated Date: [] Patient: Padmaja Dillard 60 y/o F admitted on 06/28/21 for hip pain. Chief Complaint: [] Principal diagnosis: left hip fx Constitutional Vitals: Vital Signs Temp Pulse Resp BP Pulse Ox 97.5 F 83 12 139/82 94 06/29/21 16:00 06/29/21 16:00 06/29/21 16:00 06/29/21 16:00 06/29/21 16:00 Period Temp Pulse Resp BP Sys/[place] Pulse Ox Last 24 Hr 96.5 F-98.6 F 80-118 12-28 94-157/59-93 91-100 Intake and Output 06/29/21 06/29/21 06/29/21 05:59 13:59 21:59 Intake Total 1725 3080 800 Output Total 900 Balance 825 3080 800 Weight 52.299 kg Patient Weight 06/30/21 05:59 Weight 52.299 kg Intake & Output: Intake & Output 06/29/21 06/29/21 06/29/21 05:59 13:59 21:59 Intake Total 1725 3080 800 Output Total 900 Balance 825 3080 800 Weight 52.299 kg Intake: IV 150 1000 Dextrose 5%-Lactated Ringers 1, 0 000 ml @ 75 mls/hr IV .[id number] DIANA Rx#:[id number] Lactated Ringers 1,000 ml @ 100 1000 mls/hr IV .Q10H DIANA Rx#: [id number] Ancef 2 gm In Dextrose 5% in 50 Water 50 ml @ 100 mls/hr IV PREOP DIANA Rx#:[id number] Oral 375 2080 800 IV - Manual Only 1200 Output: Urine Catheter Amount 900 Other: Meal Lunch Percent of Meal Consumed 100% Feeding Ability Independent Urine Appearance Clear Urine Color Bright Yellow OBJ DATA Labs CBC & Chem 7: 06/29/21 05:11 06/29/21 05:11 Labs: Abnormal Lab Results 06/29/21 06/29/21 06/28/21 05:11 05:11 13:55 Plt Count 105 L MPV 13.8 H Neut % (Auto) 89.6 H Lymph % (Auto) 5.3 L Lymph # (Auto) 0.44 L [place] # (Auto) Absolute Neutrophils Carbon Dioxide 19 L Glucose 175 H Hemoglobin A1c Calcium 8.4 L Urine Protein 30 mg/dl A Urine Glucose (UA) 500 mg/dl A Urine Occult Blood Trace-lysed A 06/28/21 06/28/21 06/28/21 13:45 13:45 13:45 Plt Count 124 L MPV 13.4 H Neut % (Auto) 80.0 H Lymph % (Auto) 8.6 L Lymph # (Auto) 0.87 L [place] # (Auto) 1.10 H Absolute Neutrophils 8.11 H Carbon Dioxide 20 L Glucose 206 H Hemoglobin A1c 8.0 H Calcium Urine Protein Urine Glucose (UA) Urine Occult Blood Meds: Medications Acetaminophen (Acetaminophen 325 Mg Tablet) 650 mg PO Q6HP PRN; Protocol PRN Reason: Per Pain Protocol/Fever > 101 Hydrocodone Bitart/Acetaminophen (Hydrocodone/Apap 10/325mg Tablet) 1 - 2 tab PO Q4HP PRN; Protocol PRN Reason: Per Pain Protocol Last Admin: 06/29/21 08:11 Dose: 1 tab Documented by: Albuterol/Ipratropium (Ipratropium/Albuterol 3 Ml Ampul.Neb) 3 ml NEB Q4HRT PRN PRN Reason: Wheezing Aspirin (Aspirin 81 Mg Tab.Chew) 81 mg CHEWED BID [facility] Last Admin: 06/29/21 08:26 Dose: 81 mg Documented by: Atorvastatin Calcium (Atorvastatin 40 Mg Tablet) 40 mg PO Q48@2100 [facility] Benztropine Mesylate (Benztropine 1 Mg Tablet) 1 mg PO BID [facility] Last Admin: 06/29/21 08:26 Dose: 1 mg Documented by: Bisacodyl (Bisacodyl 10 Mg Supp.Rect) 10 mg [place] Q2-3DAYS PRN PRN Reason: Constipation Cetirizine HCl (Cetirizine 10 Mg Tablet) 5 mg PO QHS [facility] Last Admin: 06/29/21 00:31 Dose: 5 mg Documented by: Dextrose (Dextrose 50% 50 Ml Vial) 0 ml IV UD PRN PRN Reason: Hypoglycemia Diagnostic Test (Pha) (Accu-Chek 1 Each Strip) 1 each FS ACHS [facility] Last Admin: 06/29/21 17:01 Dose: 1 each Documented by: Docusate Sodium (Docusate Sodium 100 Mg Capsule) 100 mg PO BID [facility] Last Admin: 06/29/21 08:26 Dose: 100 mg Documented by: Ergocalciferol (Ergocalciferol (Vitamin D2) 50,000 Unit Capsule) 50,000 unit PO MO@0900 [facility] Escitalopram Oxalate (Escitalopram 20 Mg Tablet) 20 mg PO QAM [facility] Last Admin: 06/29/21 08:26 Dose: 20 mg Documented by: Glucose (Dextrose 31 Gm Oral.Susp) 15 gm PO PRN PRN PRN Reason: Hypoglycemia Hydralazine HCl (Hydralazine 20 Mg/Ml Vial) 10 mg IV Q4-6HP PRN PRN Reason: Hypertension Hydromorphone HCl (Hydromorphone 1 Mg/Ml Syringe) 0.5 - 2 mg IV Q2HP PRN; Protocol PRN Reason: Per Pain Protocol Lactated Ringer's (Lactated Ringers) 1,000 mls @ 100 mls/hr IV .Q10H [facility] Last Admin: 06/29/21 17:12 Dose: Not Given Documented by: Insulin Glargine (Insulin Glargine, Human 1 Unit/0.01 Ml) 35 unit SQ DAILY [facility] Last Admin: 06/29/21 08:27 Dose: 35 unit Documented by: Insulin Human Lispro (Insulin Lispro 1 Unit/0.01 Ml Unit) 0 unit SQ ACHS [facility]; Protocol Last Admin: 06/29/21 17:12 Dose: 3 unit Documented by: Lamotrigine (Lamotrigine 100 Mg Tablet) 100 mg PO QHS [facility] Last Admin: 06/29/21 00:31 Dose: 100 mg Documented by: Levothyroxine Sodium (Levothyroxine Sodium 112 Mcg Tablet) 112 mcg PO QAMAC [facility] Last Admin: 06/29/21 07:41 Dose: 112 mcg Documented by: Lisinopril (Lisinopril 10 Mg Tablet) 10 mg PO DAILY [facility] Last Admin: 06/29/21 09:30 Dose: Not Given Documented by: Magnesium Hydroxide (Magnesium Hydroxide 30 Ml Oral.Susp) 30 ml PO BIDP PRN PRN Reason: Constipation Morphine Sulfate (Morphine 4 Mg/Ml Vial) 4 mg IV Q2HP PRN; Protocol PRN Reason: Per Pain Protocol Last Admin: 06/28/21 20:38 Dose: 4 mg Documented by: Ondansetron HCl (Ondansetron 4 Mg/2 Ml Vial) 4 mg IV Q4HP PRN; Protocol PRN Reason: Nausea And Vomiting Oxybutynin Chloride (Oxybutynin Chloride 5 Mg Tab.Xl.24h) 10 mg PO QDAY [facility] Last Admin: 06/29/21 08:26 Dose: 10 mg Documented by: Loxapine Succinate (10 Mg Capsule) 1 dose PO BID [facility] Last Admin: 06/29/21 09:46 Dose: Not Given Documented by: Polyethylene Glycol (Polyethylene Glycol 3350 17 Gm Packet) 17 gm PO DAILYP PRN PRN Reason: Constipation Senna (Sennosides 1 Tablet) 2 tab PO [facility] Sodium Biphosphate/Sodium Phosphate (Fleets Adult Enema) 1 dose [place] Q3-4DAYS PRN PRN Reason: Constipation Sodium Chloride (0.9 % Sodium Chloride 10 Ml Syringe) 10 ml IV Q8 [facility] Last Admin: 06/29/21 17:12 Dose: 10 ml Documented by: Temazepam (Temazepam 15 Mg Capsule) 15 mg PO HSP PRN PRN Reason: Insomnia Throat Lozenges (Benzocaine/Menthol 1 Lozenge) 1 lozenge PO PRN PRN PRN Reason: Sore Throat Zolpidem Tartrate (Zolpidem 5 Mg Tablet) 5 mg PO HSP PRN PRN Reason: Insomnia Last Admin: 06/29/21 01:15 Dose: 5 mg Documented by: A/P Time Spent With Patient Time: Total time spent is greater than 50% in coordination of care (as documented) at patient's floor/unit and/or counseling patient: QUALITY VTE Deep Vein Thrombosis/Pulmonary Embolism Present on Admission: No
[2021-06-29] MEDS ORDERED: SENNOSIDES 1 TABLET PO SCH (21:00)
[2021-06-29] MEDS ORDERED: ATORVASTATIN 40 MG TABLET PO SCH (21:00)
[2021-06-30] MEDS: HYDROcodone/APAP 10/325MG TABLET PO PRN (04:10)
[2021-06-30] MEDS: LACTATED RINGERS 1,000 ML IV SCH (07:18)
--- NOTE | 2021-06-30 07:36 | Orthopedic Progress Note ---
SUBJECTIVE Subjective Patient information: Note initiated : 06/30/21 at 7:34 am Service Date, if different from initiated Date: [] Patient: Padmaja Dillard 60 y/o F admitted on 06/28/21 for hip pain. Chief Complaint: [minimal and eating well] Principal diagnosis: left hip fx Constitutional Vitals: Vital Signs Temp Pulse Resp BP Pulse Ox 96.3 F L 90 12 126/83 93 06/30/21 07:30 06/30/21 07:30 06/30/21 07:30 06/30/21 07:30 06/30/21 07:30 Period Temp Pulse Resp BP Sys/Ballard Pulse Ox Last 24 Hr 96.3 F-100.7 F 82-102 12-16 104-139/68-87 90-97 Intake and Output 06/29/21 06/30/21 06/30/21 21:59 05:59 13:59 Intake Total 800 400 Output Total 375 300 Balance 425 100 Weight 122 lb 8 oz Intake & Output: Intake & Output 06/29/21 06/30/21 06/30/21 21:59 05:59 13:59 Intake Total 800 400 Output Total 375 300 Balance 425 100 Weight 122 lb 8 oz Intake: Oral 800 400 Output: Void Amount 375 300 Other: Meal Dinner Percent of Meal Consumed 25% Feeding Ability Independent Urine Appearance Clear Clear Urine Color Bright Yellow Bright Yellow # Voids 2 Extremities Exam Extremities exam: Present joint swelling and neurovascular intact OBJ DATA Labs CBC & Chem 7: 06/29/21 05:11 06/29/21 05:11 Labs: Abnormal Lab Results 06/29/21 06/29/21 06/28/21 05:11 05:11 13:55 Plt Count 105 L MPV 13.8 H Neut % (Auto) 89.6 H Lymph % (Auto) 5.3 L Lymph # (Auto) 0.44 L Garza # (Auto) Absolute Neutrophils Carbon Dioxide 19 L Glucose 175 H Hemoglobin A1c Calcium 8.4 L Urine Protein 30 mg/dl A Urine Glucose (UA) 500 mg/dl A Urine Occult Blood Trace-lysed A 06/28/21 06/28/21 06/28/21 13:45 13:45 13:45 Plt Count 124 L MPV 13.4 H Neut % (Auto) 80.0 H Lymph % (Auto) 8.6 L Lymph # (Auto) 0.87 L Garza # (Auto) 1.10 H Absolute Neutrophils 8.11 H Carbon Dioxide 20 L Glucose 206 H Hemoglobin A1c 8.0 H Calcium Urine Protein Urine Glucose (UA) Urine Occult Blood Meds: Medications Acetaminophen (Acetaminophen 325 Mg Tablet) 650 mg PO Q6HP PRN; Protocol PRN Reason: Per Pain Protocol/Fever > 101 Hydrocodone Bitart/Acetaminophen (Hydrocodone/Apap 10/325mg Tablet) 1 - 2 tab PO Q4HP PRN; Protocol PRN Reason: Per Pain Protocol Last Admin: 06/30/21 04:10 Dose: 1 tab Documented by: Albuterol/Ipratropium (Ipratropium/Albuterol 3 Ml Ampul.Neb) 3 ml NEB Q4HRT PRN PRN Reason: Wheezing Aspirin (Aspirin 81 Mg Tab.Chew) 81 mg CHEWED BID [facility] Last Admin: 06/29/21 20:45 Dose: 81 mg Documented by: Atorvastatin Calcium (Atorvastatin 40 Mg Tablet) 40 mg PO Q48@2100 [facility] Last Admin: 06/29/21 20:45 Dose: 40 mg Documented by: Benztropine Mesylate (Benztropine 1 Mg Tablet) 1 mg PO BID [facility] Last Admin: 06/29/21 20:45 Dose: 1 mg Documented by: Bisacodyl (Bisacodyl 10 Mg Supp.Rect) 10 mg MI Q2-3DAYS PRN PRN Reason: Constipation Cetirizine HCl (Cetirizine 10 Mg Tablet) 5 mg PO QHS [facility] Last Admin: 06/29/21 20:45 Dose: 5 mg Documented by: Dextrose (Dextrose 50% 50 Ml Vial) 0 ml IV UD PRN PRN Reason: Hypoglycemia Diagnostic Test (Pha) (Accu-Chek 1 Each Strip) 1 each FS ACHS [facility] Last Admin: 06/29/21 20:40 Dose: 1 each Documented by: Docusate Sodium (Docusate Sodium 100 Mg Capsule) 100 mg PO BID [facility] Last Admin: 06/29/21 20:45 Dose: Not Given Documented by: Ergocalciferol (Ergocalciferol (Vitamin D2) 50,000 Unit Capsule) 50,000 unit PO MO@0900 [facility] Escitalopram Oxalate (Escitalopram 20 Mg Tablet) 20 mg PO QAM [facility] Last Admin: 06/29/21 08:26 Dose: 20 mg Documented by: Glucose (Dextrose 31 Gm Oral.Susp) 15 gm PO PRN PRN PRN Reason: Hypoglycemia Hydralazine HCl (Hydralazine 20 Mg/Ml Vial) 10 mg IV Q4-6HP PRN PRN Reason: Hypertension Hydromorphone HCl (Hydromorphone 1 Mg/Ml Syringe) 0.5 - 2 mg IV Q2HP PRN; Protocol PRN Reason: Per Pain Protocol Lactated Ringer's (Lactated Ringers) 1,000 mls @ 100 mls/hr IV .Q10H [facility] Last Admin: 06/30/21 07:18 Dose: Not Given Documented by: Insulin Glargine (Insulin Glargine, Human 1 Unit/0.01 Ml) 35 unit SQ DAILY [facility] Last Admin: 06/29/21 08:27 Dose: 35 unit Documented by: Insulin Human Lispro (Insulin Lispro 1 Unit/0.01 Ml Unit) 0 unit SQ ACHS [facility]; Protocol Last Admin: 06/29/21 20:41 Dose: Not Given Documented by: Lamotrigine (Lamotrigine 100 Mg Tablet) 100 mg PO QHS [facility] Last Admin: 06/29/21 20:45 Dose: 100 mg Documented by: Levothyroxine Sodium (Levothyroxine Sodium 112 Mcg Tablet) 112 mcg PO QAMAC [facility] Last Admin: 06/29/21 07:41 Dose: 112 mcg Documented by: Lisinopril (Lisinopril 10 Mg Tablet) 10 mg PO DAILY [facility] Last Admin: 06/29/21 09:30 Dose: Not Given Documented by: Magnesium Hydroxide (Magnesium Hydroxide 30 Ml Oral.Susp) 30 ml PO BIDP PRN PRN Reason: Constipation Morphine Sulfate (Morphine 4 Mg/Ml Vial) 4 mg IV Q2HP PRN; Protocol PRN Reason: Per Pain Protocol Last Admin: 06/28/21 20:38 Dose: 4 mg Documented by: Ondansetron HCl (Ondansetron 4 Mg/2 Ml Vial) 4 mg IV Q4HP PRN; Protocol PRN Reason: Nausea And Vomiting Oxybutynin Chloride (Oxybutynin Chloride 5 Mg Tab.Xl.24h) 10 mg PO QDAY [facility] Last Admin: 06/29/21 08:26 Dose: 10 mg Documented by: Loxapine Succinate (10 Mg Capsule) 1 dose PO BID [facility] Last Admin: 06/29/21 20:41 Dose: Not Given Documented by: Polyethylene Glycol (Polyethylene Glycol 3350 17 Gm Packet) 17 gm PO DAILYP PRN PRN Reason: Constipation Senna (Sennosides 1 Tablet) 2 tab PO [facility] Last Admin: 06/29/21 20:45 Dose: Not Given Documented by: Sodium Biphosphate/Sodium Phosphate (Fleets Adult Enema) 1 dose MI Q3-4DAYS PRN PRN Reason: Constipation Sodium Chloride (0.9 % Sodium Chloride 10 Ml Syringe) 10 ml IV Q8 [facility] Last Admin: 06/29/21 20:39 Dose: 10 ml Documented by: Temazepam (Temazepam 15 Mg Capsule) 15 mg PO HSP PRN PRN Reason: Insomnia Last Admin: 06/29/21 23:41 Dose: 15 mg Documented by: Throat Lozenges (Benzocaine/Menthol 1 Lozenge) 1 lozenge PO PRN PRN PRN Reason: Sore Throat Zolpidem Tartrate (Zolpidem 5 Mg Tablet) 5 mg PO HSP PRN PRN Reason: Insomnia Last Admin: 06/29/21 01:15 Dose: 5 mg Documented by: A/P Narrative A/P Narrative: dc home with pt Time Spent With Patient Time: Total time spent is greater than 50% in coordination of care (as documented) at patient's floor/unit and/or counseling patient: Total time spent with greater than 50% in coordination of care (as documented) at patient's floor/unit and/or counseling patient:: less than 15 minutes
[2021-06-30] MEDS: INSULIN LISPRO 1 UNIT/0.01 ML UNIT SQ SCH (08:23)
[2021-06-30] MEDS: LEVOTHYROXINE SODIUM 112 MCG TABLET PO SCH (08:23)
[2021-06-30] MEDS: OXYBUTYNIN CHLORIDE 5 MG TAB.XL.24H PO SCH (08:23)
[2021-06-30] MEDS: LISINOPRIL 10 MG TABLET PO SCH (08:24)
[2021-06-30] MEDS: ASPIRIN 81 MG TAB.CHEW CHEWED SCH (08:24)
[2021-06-30] MEDS: ESCITALOPRAM 20 MG TABLET PO SCH (08:24)
[2021-06-30] MEDS: DOCUSATE SODIUM 100 MG CAPSULE PO SCH (08:24)
[2021-06-30] MEDS: BENZTROPINE 1 MG TABLET PO SCH (08:24)
[2021-06-30] MEDS: LOXAPINE SUCCINATE 10 MG PO SCH (08:37)
[2021-06-30] MEDS: INSULIN GLARGINE, HUMAN 1 UNIT/0.01 ML SQ SCH (08:37)
--- NOTE | 2021-06-30 09:15 | EKG ---
[facility] Test Date: 2021-06-28 Pat Name: Padmaja Dillard Department: ED Room: Gender: Female Boiler Welder: sb : 1960 Requested By: Deja Orr Order Number: [id number] Reading MD: Colton Boykin Measurements Intervals Brady Rate: 90 P: 72 AR: 117 QRS: 79 QRSD: 99 T: 69 QT: 395 QTc: 484 Interpretive Statements Sinus rhythm Ventricular trigeminy Borderline short AR interval Probable left atrial enlargement Electronically Signed On 06-30-2021 9:15:45 PST by Colton Boykin /store/M0/[id number]
[2021-06-30 09:58] LABS: Basophils # (Auto) 0.01 K/mcL (0.00-0.30); Basophils % (Auto) 0.1 % (0.0-2.0); Eosinophils # (Auto) 0.04 K/mcL (0.00-0.70); Eosinophils % (Auto) 0.5 % (0.0-7.0); Hematocrit 41.6 % (34.1-44.9); Hemoglobin 13.4 g/dL (11.2-15.7); Lymphocytes # (Auto) 0.76 K/mcL (1.50-4.80); Lymphocytes % (Auto) 8.8 % (15.5-49.0); Mean Cell Volume 87.4 fL (80.0-100.0); Mean Corpuscular HGB Conc 32.2 g/dL (31.0-36.0); Mean Platelet Volume 13.9 fL (7.4-10.4); Monocytes # (Auto) 1.06 K/mcL (0.10-0.90); Monocytes % (Auto) 12.2 % (1.0-12.0); Neutrophils % (Auto) 78.4 % (38.0-78.0); Platelet Count 123 K/mcL (140-440); RBC 4.76 M/mcL (3.59-5.38); Red Cell Distribution Width 13.6 % (11.5-14.5); WBC 8.7 K/mcL (4.5-11.0)
--- NOTE | 2021-06-30 10:52 | Discharge Summary ---
Discharge Provider Provider Patient information: Note initiated : 06/30/21 at 10:50 am Service Date, if different from initiated Date: [] Patient: Padmaja Dillard 60 y/o F admitted on 06/28/21 for hip pain. Chief Complaint: [] Date of admission: 06/28/21 16:40 Discharge date: 06/30/21 Primary care physician: Ander Snyder Consults: 06/28/21 Consult to Physician [CONS] Stat Comment: Consulting Provider: Hao Tapia Reason For Exam: Physician to Consult 06/28/21 16:51 Consult to Physician [CONS] Stat Comment: Consulting Provider: Arthur Mario Reason For Exam: Physician to Consult Discharge Meds Discharge Medications Home Medications ergocalciferol (vitamin D2) 1,250 mcg (50,000 unit) capsule 50,000 unit PO MO@0900 cap 12/09/14 [History Confirmed 06/28/21 Last Taken 10/25/20 05:00] lamotrigine 100 mg tablet 200 mg PO BID tab 12/09/14 [History Confirmed 06/28/21 Last Taken 10/25/20 05:00] loxapine succinate 10 mg capsule 10 mg PO BID cap 12/09/14 [History Confirmed 06/28/21 Last Taken 10/25/20 05:00] benztropine 1 mg tablet 1 mg PO BID 30 Days #60 07/20/16 [History Confirmed 06/28/21 Last Taken 10/25/20 05:00] lancets (OneTouch UltraSoft Lancets) #200 each 03/22/17 [Rx Confirmed 06/28/21 Last Taken Unknown] Briefs Prevail Medium Pk #40 each 04/05/17 [Rx Confirmed 06/28/21 Last Taken Unknown] cetirizine 10 mg tablet 5 mg PO QHS #30 tab 08/16/17 [Rx Confirmed 06/28/21 Last Taken 10/25/20 05:00] blood sugar diagnostic (True Metrix Glucose Test Strip) #100 each 11/20/17 [Rx Confirmed 06/28/21 Last Taken Unknown] insulin aspart U-100 100 unit/mL (3 mL) subcutaneous pen See Rx Instructions SUB-Q .COMPLEX #18 ml 02/28/18 [Rx Confirmed 06/28/21 Last Taken 10/24/20] oxybutynin chloride 10 mg tablet,extended release 24 hr 10 mg PO QDAY #30 tab 04/17/18 [Rx Confirmed 06/28/21 Last Taken 10/25/20 05:00] pen needle, diabetic 32 gauge x 1/4" (BD Ultra-Fine Micro Pen Needle) #100 each 04/18/18 [Rx Confirmed 06/28/21 Last Taken Unknown] hydrocodone 5 mg-acetaminophen 325 mg tablet 1 tab PO TID-QID PRN #120 tab 05/02/18 [Rx Confirmed 06/28/21 Last Taken 10/23/20] levothyroxine 112 mcg tablet 112 mcg PO QAM #30 tab 09/17/18 [Rx Confirmed 06/28/21 Last Taken 10/25/20 05:00] empagliflozin 10 mg tablet (Jardiance) 10 mg PO QAM 10/21/20 [History Confirmed 06/28/21 Last Taken 10/25/20 05:00] docusate sodium 100 mg capsule 100 mg PO BID #60 cap 10/25/20 [Rx Confirmed 06/28/21 Last Taken Unknown] hydrocodone 10 mg-acetaminophen 325 mg tablet 1 - 2 tab PO Q4HP PRN #75 tab 10/25/20 [Rx Confirmed 06/28/21 Last Taken Unknown] aspirin 81 mg tablet,delayed release (Ecotrin Low Strength) 81 mg PO BID #60 tab 06/28/21 [Rx Last Taken Unknown] atorvastatin 40 mg tablet 20 mg PO DAILY 06/28/21 [History Confirmed 06/28/21 Last Taken Unknown] escitalopram oxalate 10 mg tablet 1 tab PO QDAY 06/28/21 [History Confirmed 06/28/21 Last Taken Unknown] insulin aspart U-100 100 unit/mL (3 mL) subcutaneous pen (Novolog Flexpen U-100 Insulin aspart) See Rx Instructions .ROUTE .COMPLEX 06/28/21 [History Confirmed 06/28/21 Last Taken Unknown] paliperidone palmitate 234 mg/1.5 mL intramuscular syringe (Invega Sustenna) 234 mg IM Q28D 06/28/21 [History Confirmed 06/28/21 Last Taken Unknown] COURSE Hospital Course Hospital course: Ms. Dillard is a 60 year old F history of syndrome, schizoaffective disorder, type 2 diabetes mellitus, hypothyroidism, essential hypertension, mixed dyslipidemia, mixed dyslipidemia, systolic CHF with LVEF 48%, presenting with fall with resultant left hip fracture. She fell at home yesterday stating that there was a puddle of water on the ground. She did not pass out. She stayed about 15 to 20 minutes on the floor before she was found by assisted living staff. She was sent to the ED for further evaluations and imaging showed that there is mildly displaced, angulated transcervical fracture of the left hip. Vital signs showing mildly elevated blood pressure with systolic blood pressure in the 160s and diastolic blood pressure in the 100s mmHg. Labs significant for mildly elevated blood glucose of 206 with rest of the labs largely within normal limits. Orthopedic surgeon Dr. Mario notified, would like to take patient to the [facility]. I was notified to admit the patient for pre-op evaluation and post -op care. 06/29: s/p left total hip arthroplasty. Tolerated the surgery well. c/o 5/0 aching pain of the left hip. No bowel movement yet after the surgery. Denies shortness of breath. Pertinent ROS: c/o 5/0 aching pain of the left hip. No bowel movement yet after the surgery. Denies shortness of breath. 06/30 Feeling ok today, orthopedic surgery prescribed aspirin 81 mg BID for DVT prophylaxis. Discharged to home with caregiver support and home health. Physical exam Head: Atraumatic, normal inspection. Eyes: normal appearance, no scleral icterus. Neck: full ROM Respiratory: no respiratory distress. Cardiovascular: normal rate and rhythm, S1, S2. GI/Abdominal: soft, nontender, no guarding. Extremities: surgical incision covered with clean bandage. Neurological: CN II-XII intact, intact motor, intact sensation. Psychiatric: normal mood, impaired cognition Skin: warm, normal color Discharge diagnosis: Left hip fracture. Time Spent with Patient Time attestation: Total time spent providing and/or coordinating discharge services: EXAM Constitutional Vitals: Temp Pulse Resp BP Pulse Ox 96.3 F L 90 12 126/83 93 06/30/21 07:30 06/30/21 07:30 06/30/21 07:30 06/30/21 07:30 06/30/21 07:30 Discharge Data Data Completed and Pending Labs on day of discharge: Labs from last 24 hours 06/30/21 08:45 WBC 8.7 RBC 4.76 Hgb 13.4 Hct 41.6 MCV 87.4 MCH 28.2 MCHC 32.2 RDW 13.6 Plt Count 123 L MPV 13.9 H Neut % (Auto) 78.4 H Lymph % (Auto) 8.8 L Grayson % (Auto) 12.2 H Eos % (Auto) 0.5 Baso % (Auto) 0.1 Lymph # (Auto) 0.76 L Grayson # (Auto) 1.06 H Eos # (Auto) 0.04 Baso # (Auto) 0.01 Absolute Neutrophils 6.80 Discharge Plan Patient/Caregiver Discharge Instructions Activity: ambulate only with your walker and as per physical therapy Diet: Regular Diet Instructions: Hydrocodone/Acetaminophen (By mouth), Aspirin (By mouth), Total Hip Replacement (DC) Prescriptions: New aspirin [Ecotrin Low Strength] 81 mg tablet,delayed release (DR/EC) 81 mg PO BID Qty: 60 0RF No Action (DME) Briefs Prevail Medium Pk Qty: 40 12RF Rx Instructions: Use as directed. cetirizine 10 mg tablet 5 mg PO QHS Qty: 30 12RF (DME) blood sugar diagnostic [True Metrix Glucose Test Strip] strip See Dose Instructions .ROUTE .MEDSUPPLY Qty: 100 12RF Dose Instruction: As directed Rx Instructions: Use to test up to six times daily as directed insulin aspart U-100 100 unit/mL insulin pen See Rx Instructions SUB-Q .COMPLEX Qty: 18 11RF Dose Instruction: 150-199 - 4u, 200 -249 - 6u, 250-299 - 8u, 300-349 - 10u, over 350 12u SUB-Q administer within 5-10 min before a meal/food and no later than at the start of the meal/snack. Max 12 units.; administer within 5-10 min before a meal/food and no later than at the start of the meal/snack. Max 12 units. Label Comments: inject before each meal with carb counting to keep sugars under 160mg/dl 2 hours after eating Rx Instructions: Inject per sliding scale: 150-199 - 4u, 200 -249 - 6u, 250-299 - 8u, 300-349 - 10u, over 350 12u. oxybutynin chloride 10 mg tablet extended release 24hr 10 mg PO QDAY Qty: 30 12RF (DME) pen needle, diabetic [BD Ultra-Fine Micro Pen Needle] 32 gauge x 1/4" needle See Dose Instructions .ROUTE .MEDSUPPLY Qty: 100 12RF Dose Instruction: As directed Rx Instructions: Use four times daily to inject insulin as directed. hydrocodone-acetaminophen 5-325 mg tablet 1 tab PO TID-QID PRN (Reason: pain) Qty: 120 0RF loxapine succinate 10 mg capsule 10 mg PO BID 0RF ergocalciferol (vitamin D2) 50,000 unit capsule 50,000 unit PO MO@0900 0RF lamotrigine 100 mg tablet 200 mg PO BID 0RF Label Comments: take 0.5 tablet by oral route once a day at bedtime benztropine 1 tablet 1 mg PO BID 30 Days Qty: 60 0RF (DME) lancets [OneTouch UltraSoft Lancets] misc See Dose Instructions .ROUTE .MEDSUPPLY Qty: 200 12RF Dose Instruction: As directed Rx Instructions: Use to test blood sugars twice daily as directed levothyroxine 112 mcg tablet 112 mcg PO QAM Qty: 30 12RF Rx Instructions: before meal Jardiance 10 mg Tablet 10 mg PO QAM 0RF hydrocodone-acetaminophen 10-325 mg Tablet 1 - 2 tab PO Q4HP PRN (Reason: Per Pain Protocol) Qty: 75 0RF docusate sodium 100 mg capsule 100 mg PO BID Qty: 60 0RF atorvastatin 40 mg tablet 20 mg PO DAILY 0RF escitalopram oxalate 10 mg tablet 1 tab PO QDAY 0RF insulin aspart U-100 [Novolog Flexpen U-100 Insulin] 100 unit/mL (3 mL) insulin pen See Rx Instructions .ROUTE .COMPLEX 0RF Rx Instructions: per personal sliding scale Invega Sustenna 234 mg/1.5 mL syringe 234 mg IM Q28D 0RF Other Ambulatory Orders: Physical Therapy DC - GAYE (Routine) Location: None Selected Ordered By: Danny Lowery Toilet Riser Discharge Order (ONCE) Location: None Selected Ordered By: Danny Lowery Walker (ONCE) Location: None Selected Ordered By: Danny Lowery Follow Up Plan Follow up with: Ander Snyder MD [Primary Care Provider] - Danny Lowery PA-C [Physician Automotive Maintenance Technician] - Patient Disposition: Xfer SNF Prognosis: Fair Rehab Potential: Fair I certify that the patient requires SNF services: Yes Overall status at discharge: patient is progressing back to baseline Discharge Orders: Discharge Order (Routine); Ordered 07/01/21 Ordered By: Danny ZURITA VTE Deep Vein Thrombosis/Pulmonary Embolism Present on Admission: No
[2021-06-30] MEDS: 0.9 % SODIUM CHLORIDE 10 ML SYRINGE IV SCH (11:16)
[2021-07-04] MEDS ORDERED: ERGOCALCIFEROL (VITAMIN D2) 50,000 UNIT CAPSULE PO SCH (09:00)
== END 2021-06-30 12:15 | disposition home health service (06) | DRG 522 ==
LOC: ED 12:30 → MEDSUR 16:40
PROVIDERS: ADMIT Internal Medicine; ATTEND Internal Medicine

== ENCOUNTER 2021-11-10 09:28 | Observation (INO) ==
[2021-11-10] MEDS ORDERED: 0.9 % SODIUM CHLORIDE 1,000 ML IV ONE (09:35)
[2021-11-10] MEDS ORDERED: ONDANSETRON 4 MG/2 ML VIAL IV ONE (09:35)
[2021-11-10] MEDS ORDERED: morphine 10 MG/ML VIAL IV PRN (09:35)
[2021-11-10] MEDS ORDERED: morphine 4 MG/ML VIAL IV ONE ×2 (09:41→12:49)
--- NOTE | 2021-11-10 10:00 | XRay Report ---
INDICATION: fall, h/o artificial hip, pain TECHNIQUE: AP and crosstable lateral left hip COMPARISON: Previous examination dated 08/28/2021 FINDINGS: Left hip hemiarthroplasty. Recurrent superior dislocation. No acute fracture. IMPRESSION: 1. Left hip hemiarthroplasty 2. Recurrent dislocation without detectable fracture Interpreted and Authenticated by: Vinay Watts 11/10/21
--- NOTE | 2021-11-10 10:20 | Emergency Department Note ---
HPI General Chief complaint: Extremity Injury, Lower Stated complaint: Left Hip Pain Time Seen by Provider: 11/10/21 09:34 Source: patient and EMS Mode of arrival: EMS Limitations: no limitations History of Present Illness HPI Narrative: Narrative: 61-year-old female with history of left hip hemiarthroplasty, diabetes, hypertension presents from home with her home care for evaluation of left hip pain and inability to move left leg after stepping out of the truck and falling down when she tried to get out without assistance. She landed on left side. She denies head hit or loss of consciousness. She has not on any blood thinners. She has had multiple dislocations over the past 2 months which were able to be reduced in the emergency department. Last oral intake was last night. She denies any prodromal symptoms at this was a mechanical trip and fall Related Data Home Medications Medication Instructions Recorded Confirmed ergocalciferol (vitamin D2) 1,250 50,000 unit PO MO@0900 cap 12/09/14 09/27/21 mcg (50,000 unit) capsule lamotrigine 100 mg tablet 200 mg PO BID tab 12/09/14 08/13/21 loxapine succinate 10 mg capsule 10 mg PO BID cap 12/09/14 09/27/21 benztropine 1 mg tablet 1 mg PO BID 30 Days #60 07/20/16 09/27/21 empagliflozin 10 mg tablet 10 mg PO QAM 10/21/20 08/13/21 (Jardiance) escitalopram oxalate 10 mg tablet 1 tab PO QDAY 06/28/21 09/27/21 insulin aspart U-100 100 unit/mL See Rx Instructions .ROUTE .COMPLEX 06/28/21 06/28/21 (3 mL) subcutaneous pen (Novolog Flexpen U-100 Insulin aspart) paliperidone palmitate 234 mg/1.5 234 mg IM Q28D 06/28/21 06/28/21 mL intramuscular syringe (Invega Sustenna) atorvastatin 40 mg tablet 40 mg PO DAILY tab 09/27/21 09/27/21 insulin glargine 100 unit/mL 35 unit SUBCUT QDAY ml 10/24/21 10/24/21 subcutaneous solution (Lantus U-100 Insulin) Previous Rx's Medication Instructions Recorded lancets (OneTouch UltraSoft #200 each 03/22/17 Lancets) Briefs Prevail Medium Pk #40 each 04/05/17 cetirizine 10 mg tablet 5 mg PO QHS #30 tab 08/16/17 blood sugar diagnostic (True #100 each 11/20/17 Metrix Glucose Test Strip) insulin aspart U-100 100 unit/mL See Rx Instructions SUB-Q .COMPLEX 02/28/18 (3 mL) subcutaneous pen #18 ml oxybutynin chloride 10 mg 10 mg PO QDAY #30 tab 04/17/18 tablet,extended release 24 hr pen needle, diabetic 32 gauge x #100 each 04/18/18 1/4" (BD Ultra-Fine Micro Pen Needle) hydrocodone 5 mg-acetaminophen 325 1 tab PO TID-QID PRN #120 tab 05/02/18 mg tablet levothyroxine 112 mcg tablet 112 mcg PO QAM #30 tab 09/17/18 docusate sodium 100 mg capsule 100 mg PO BID #60 cap 10/25/20 hydrocodone 10 mg-acetaminophen 1 - 2 tab PO Q4HP PRN #75 tab 10/25/20 325 mg tablet aspirin 81 mg tablet,delayed 81 mg PO BID #60 tab 06/28/21 release (Ecotrin Low Strength) Allergies Allergy/AdvReac Type Severity Reaction Status Date / Time Penicillins Allergy Mild Hives Verified 08/28/21 17:05 [place] Allergy Mild Hives Verified 08/28/21 17:05 tetracycline [Tetracycline] Allergy Mild Hives Verified 08/28/21 17:05 Erythromycin Base AdvReac Mild Diarrhea Verified 08/28/21 17:05 Sulfa (Sulfonamide AdvReac Mild Itching Verified 08/28/21 17:05 Antibiotics) Review of Systems ROS ROS Narrative: Narrative: All systems ED: reviewed and negative except as stated. 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) Hypothyroidism (acquired) (Chronic ~06/28/18) Proteinuria (Chronic ~06/28/18) History of kidney stones (Chronic ~06/28/18) Overweight (Chronic ~06/28/18) retirement current use of insulin (Chronic ~06/28/18) Lattice degeneration of peripheral retina (Chronic ~06/28/18) Keratoconjunctivitis sicca not specified as Sjogren's (Chronic ~06/28/18) 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) Hypoglycemia (Chronic) Right foot injury (Chronic) Injury of foot, left (Chronic) Diabetes (Chronic) Fracture of neck of left humerus (Chronic) Fracture of femoral neck (Chronic) Closed left hip fracture (Chronic) Dislocation, hip, posterior (Chronic) Acute pain of left hip (Chronic) Dislocation of left hip (Chronic) Headache (Chronic) Nausea (Chronic) Schizophrenia (Chronic ~06/28/18) Dizziness (Chronic) Back pain (Chronic) Hip pain (Chronic) Pneumonia (Chronic ~10/03/18) Lower back injury (Chronic ~06/28/18) Diabetes mellitus, type II (Chronic ~06/28/18) Low compliance bladder (Chronic ~06/28/18) No-show for appointment (Acute) Dislocation, hip (Acute) Medical History Acute pain of left hip Adverse drug reaction CRYSTAL (acute kidney injury) Anemia in chronic kidney disease (~06/28/18) Back pain Chronic kidney disease, stage III (moderate) (~06/28/18) Chronic schizoaffective disorder CKD (chronic kidney disease), stage II (02/05/13) Closed left hip fracture Dental abscess Diabetes mellitus, type II (~06/28/18) Diabetic ketoacidosis Diarrhea Dislocation of left hip Dislocation, hip, posterior Dizziness Dysuria Esophageal reflux (~06/28/18) Fracture of femoral neck Fracture of neck of left humerus Gastroenteritis Headache Hip pain History of kidney stones (~06/28/18) Hyperlipidemia (04/03/06) Recorded 04/03/06 mixed hyperlipidemia Hypertension, essential (~06/28/18) Hypertonicity of bladder (07/11/12) Hypoglycemia Hypothyroidism (acquired) (~06/28/18) Injury of foot, left Keratoconjunctivitis sicca not specified as Sjogren's (~06/28/18) Lattice degeneration of peripheral retina (~06/28/18) 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 (~06/28/18) Low compliance bladder (~06/28/18) Lower back injury (~06/28/18) Nausea Overweight (~06/28/18) Pneumonia (~10/03/18) Proteinuria (~06/28/18) Pustular eczema Repetitive strain injury of lower back Right foot injury Schizophrenia (~06/28/18) Stress incontinence, female Turners syndrome (~06/28/18) Type 2 diabetes mellitus with renal manifestations No consistent finding of albuminuria Urge incontinence UTI (urinary tract infection) (~06/28/18) Chronic Vitamin D deficiency (~06/28/18) Vomiting Wrist Injury Surgical History History of adenoidectomy Age 8 History of eye surgery R eye strabismus surgery age History of hysterectomy Recorded 04/03/06 with ovaries remaining - taken for cervical cancer History of tonsillectomy Family History Grandmother Malignant neoplasm Paternal Other Cardiac disease Depression Essential hypertension Social History Smoking Status: Former smoker Alcohol Intake Frequency: does not drink Substance Use: does not use Exam Narrative Narrative: Narrative: General Limitations: no limitations General appearance: Present alert and in no apparent distress Head Head: Present atraumatic and normocephalic Eye Eye: Present normal appearance and EOMI ENT ENT: Present normal exam and mucous membranes moist Neck Neck: Present normal inspection and full ROM Chest Chest: Present normal inspection and symmetric chest wall rise Respiratory Respiratory: Present normal lung sounds bilaterally; Absent respiratory distress Cardiovascular Cardiovascular: Present regular rate and normal rhythm Adbominal Abdominal: Present soft; Absent tenderness Extremities Extremities: Present normal inspection, full ROM and other (Left leg appears slightly shortened and rotated, distal pulse intact, distal motion and sensation intact, to significantly move at the hip due to pain but otherwise no areas of tenderness) Neurological Neurological: Present alert, oriented X3 and normal gait Psychiatric Psychiatric: Present normal affect and normal mood Skin Skin: Present warm (WNL), dry and normal color Course Vital Signs Vital signs: Vital Signs Temperature 97.7 F 11/10/21 09:29 Pulse Rate 90 11/10/21 09:29 Respiratory Rate 18 11/10/21 09:29 Blood Pressure 174/80 11/10/21 09:29 Pulse Oximetry (%) 98 11/10/21 09:29 Temperature 97.7 F 11/10/21 09:29 Pulse Rate 101 H 11/10/21 12:58 Respiratory Rate 16 11/10/21 12:58 Blood Pressure 169/97 11/10/21 12:58 Pulse Oximetry (%) 93 11/10/21 12:58 MDM MDM Narrative Medical decision making narrative: Narrative: Patient with likely left hip dislocation, x-ray obtained to rule out fracture which was negative. I believe she is stable for sedation and trial of reduction in the emergency department. She follows with Dr. Gray for Ortho Reduction attempted multiple times and it was felt to move and felt like it clunk in, but then pulled back out several times. Dr. Gray consulted, will plan for reduction in the OR tomorrow Lab Data Lab results reviewed: Yes I reviewed the patient's lab results. Labs: Lab Results 11/10/21 Range/Units 10:22 POC Hct 39.0 (36-48) POC Sodium 139 (133-145) POC Potassium 4.0 (3.3-5.1) POC Chloride 105 (96-108) POC Total CO2 23.0 (22-30) POC BUN 18 (6-20) POC Creatinine 0.9 (0.6-1.2) POC Glucose 83 (70-105) POC WB Ioniz Calcium 1.13 L (1.16-1.32) EKG Data EKG #1: EKG attestation: Yes I reviewed and interpreted this EKG. EKG results narrative: Sinus rhythm at a rate of 87. Normal axis. QTC 479. No acute ST-T changes. Normal EKG. Procedures Orthopedic Joint Reduction Joint #1: Consent Obtained: written consent Time Out Performed: Yes Side: left Joint Reduction Location: hip Analgesia: procedural sedation Technique used: traction/counter-traction and direct manipulation Post-reduction neuro exam: intact Post-reduction vascular: intact Post Reduction X-Ray Obtained: Yes Post Reduction X-Ray Results: not reduced Splint Applied: No Patient Tolerated Procedure: well Procedural Sedation Indication: fracture/dislocation reduction ASA Class: III Preparation: loader demolder applied, pulse oximeter, capnometry used, supplemental O2 applied, suction/airway equipment at bedside and IV secured IV Propofol Dose (mgs): 100 Patient Tolerated Procedure: well Complications: hypoventilation Interventions: oxygen applied, assist by BVM and painful stimulation Additional Comments: 20 min intraservice time Discharge Plan Patient/Caregiver Discharge Instructions Pt seen by BAG PRESS OPERATOR/PA only: No Clinical Impression: Dislocation, hip Instructions: Hip Dislocation (ED), Hip Abduction Pillow (DC) Patient Disposition: Home, Self-Care Follow up with: Ander Snyder MD [Primary Care Provider] - Arthur Mario MD [Physician] - Prescriptions: No Action (DME) Briefs Prevail Medium Pk Qty: 40 12RF Rx Instructions: Use as directed. cetirizine 10 mg tablet 5 mg PO QHS Qty: 30 12RF (DME) blood sugar diagnostic [True Metrix Glucose Test Strip] strip See Dose Instructions .ROUTE .MEDSUPPLY Qty: 100 12RF Dose Instruction: As directed Rx Instructions: Use to test up to six times daily as directed insulin aspart U-100 100 unit/mL insulin pen See Rx Instructions SUB-Q .COMPLEX Qty: 18 11RF Dose Instruction: 150-199 - 4u, 200 -249 - 6u, 250-299 - 8u, 300-349 - 10u, over 350 12u SUB-Q administer within 5-10 min before a meal/food and no later than at the start of the meal/snack. Max 12 units.; administer within 5-10 min before a meal/food and no later than at the start of the meal/snack. Max 12 units. Label Comments: inject before each meal with carb counting to keep sugars under 160mg/dl 2 hours after eating Rx Instructions: Inject per sliding scale: 150-199 - 4u, 200 -249 - 6u, 250-299 - 8u, 300-349 - 10u, over 350 12u. oxybutynin chloride 10 mg tablet extended release 24hr 10 mg PO QDAY Qty: 30 12RF (DME) pen needle, diabetic [BD Ultra-Fine Micro Pen Needle] 32 gauge x 1/4" needle See Dose Instructions .ROUTE .MEDSUPPLY Qty: 100 12RF Dose Instruction: As directed Rx Instructions: Use four times daily to inject insulin as directed. hydrocodone-acetaminophen 5-325 mg tablet 1 tab PO TID-QID PRN (Reason: pain) Qty: 120 0RF loxapine succinate 10 mg capsule 10 mg PO BID 0RF ergocalciferol (vitamin D2) 50,000 unit capsule 50,000 unit PO MO@0900 0RF lamotrigine 100 mg tablet 200 mg PO BID 0RF Label Comments: take 0.5 tablet by oral route once a day at bedtime benztropine 1 tablet 1 mg PO BID 30 Days Qty: 60 0RF (DME) lancets [OneTouch UltraSoft Lancets] misc See Dose Instructions .ROUTE .MEDSUPPLY Qty: 200 12RF Dose Instruction: As directed Rx Instructions: Use to test blood sugars twice daily as directed Lantus U-100 Insulin 100 unit/mL solution 35 unit subcut QDAY 0RF levothyroxine 112 mcg tablet 112 mcg PO QAM Qty: 30 12RF Rx Instructions: before meal Jardiance 10 mg Tablet 10 mg PO QAM 0RF hydrocodone-acetaminophen 10-325 mg Tablet 1 - 2 tab PO Q4HP PRN (Reason: Per Pain Protocol) Qty: 75 0RF docusate sodium 100 mg capsule 100 mg PO BID Qty: 60 0RF aspirin [Ecotrin Low Strength] 81 mg tablet,delayed release (DR/EC) 81 mg PO BID Qty: 60 0RF escitalopram oxalate 10 mg tablet 1 tab PO QDAY 0RF insulin aspart U-100 [Novolog Flexpen U-100 Insulin] 100 unit/mL (3 mL) insulin pen See Rx Instructions .ROUTE .COMPLEX 0RF Rx Instructions: per personal sliding scale Invega Sustenna 234 mg/1.5 mL syringe 234 mg IM Q28D 0RF atorvastatin 40 mg tablet 40 mg PO DAILY 0RF
[2021-11-10] MEDS ORDERED: PROPOFOL 200 MG/20 ML VIAL IV ONE (10:23)
[2021-11-10 10:28] LABS: POC Calcium, Ionized 1.13 (1.16-1.32); POC Creatinine 0.9 (0.6-1.2)
--- NOTE | 2021-11-10 11:01 | XRay Report ---
INDICATION: post reduction TECHNIQUE: AP left hip COMPARISON: Previous examination dated 11/10/2021 FINDINGS: Status post attempted reduction of left hip dislocation. Anatomic reduction has not been achieved. No detectable fracture IMPRESSION: 1. Left hip hemiarthroplasty 2. Persistent superior dislocation without anatomic reduction Interpreted and Authenticated by: Vinay Watts 11/10/21
[2021-11-10] MEDS ORDERED: ONDANSETRON 4 MG/2 ML VIAL IV PRN (11:47)
[2021-11-10] MEDS ORDERED: morphine 4 MG/ML VIAL IV PRN (11:47)
[2021-11-10] MEDS ORDERED: ceFAZolin 2 GM in DEXTROSE 5% IN WATER 50 ML IV SCH (12:30)
--- NOTE | 2021-11-10 12:39 | EKG ---
[facility] Minor Care Test Date: 2021-11-10 Pat Name: Padmaja Dillard Department: ED Room: Gender: Female Central Supply Clerk: : 1960 Requested By: Tai Smith Order Number: [id number] Reading MD: Colton Boykin Measurements Intervals [place] Rate: 87 P: 68 PA: 126 QRS: 70 QRSD: 88 T: 51 QT: 398 QTc: 479 Interpretive Statements Sinus rhythm Probable left atrial enlargement Electronically Signed On 11-10-2021 12:38:55 PDT by Colton Boykin /store/M0/[id number]
[2021-11-10] MEDS: HYDROmorphone 1 MG/ML SYRINGE IV PRN ×2 (19:00→21:30)
[2021-11-10] MEDS: INSULIN LISPRO 1 UNIT/0.01 ML UNIT SQ SCH (21:30)
[2021-11-11] MEDS: HYDROmorphone 1 MG/ML SYRINGE IV PRN (03:02)
[2021-11-11] MEDS ORDERED: ceFAZolin 2 GM in DEXTROSE 5% IN WATER 50 ML IV SCH (06:30)
[2021-11-11] MEDS: INSULIN LISPRO 1 UNIT/0.01 ML UNIT SQ SCH ×4 (07:51→20:37)
[2021-11-11] MEDS ORDERED: MAGNESIUM HYDROXIDE 30 ML ORAL.SUSP PO PRN (11:50)
[2021-11-11] MEDS ORDERED: ONDANSETRON 4 MG/2 ML VIAL IV PRN ×3 (11:50→13:48)
[2021-11-11] MEDS ORDERED: TRANEXAMIC ACID 1,000 MG/10 ML VIAL IV SCH (11:50)
[2021-11-11] MEDS ORDERED: ACETAMINOPHEN 325 MG TABLET PO PRN (11:50)
[2021-11-11] MEDS ORDERED: POLYETHYLENE GLYCOL 3350 17 GM PACKET PO PRN (11:50)
[2021-11-11] MEDS ORDERED: HYDROmorphone 1 MG/ML SYRINGE IV PRN (11:50)
[2021-11-11] MEDS ORDERED: BISACODYL 10 MG SUPP.RECT PR PRN (11:50)
[2021-11-11] MEDS ORDERED: FLEETS ADULT ENEMA PR PRN (11:50)
[2021-11-11] MEDS ORDERED: TEMAZEPAM 15 MG CAPSULE PO PRN (11:50)
[2021-11-11] MEDS ORDERED: HYDROcodone/APAP 10/325MG TABLET PO PRN (11:50)
[2021-11-11] MEDS ORDERED: KETAMINE 50 MG/ML Syringe (ANEST) IV ONE (12:09)
[2021-11-11] MEDS ORDERED: LIDOCAINE HCL/PF 100 MG/5 ML SYRINGE IV ONE (12:09)
[2021-11-11] MEDS ORDERED: ONDANSETRON 4 MG/2 ML VIAL ONE (12:09)
[2021-11-11] MEDS ORDERED: MIDAZOLAM 2 MG/2 ML VIAL ONE (12:09)
[2021-11-11] MEDS ORDERED: PROPOFOL 200 MG/20 ML VIAL IV ONE (12:09)
[2021-11-11] MEDS ORDERED: TRANEXAMIC ACID 1,000 MG/10 ML VIAL ONE (12:09)
[2021-11-11] MEDS ORDERED: ROPIVACAINE HCL/PF 20 ML VIAL IJ ONE (12:09)
[2021-11-11] MEDS ORDERED: ePHEDrine 50 MG/5 ML SYRINGE (ANEST) IV ONE (12:09)
[2021-11-11] MEDS ORDERED: DEXAMETHASONE 10 MG/ML VIAL ONE (12:09)
[2021-11-11] MEDS ORDERED: PHENYLephrine 1 MG/10 ML SYRINGE (ANEST) ONE (12:09)
[2021-11-11] MEDS ORDERED: GLYCOPYRROLATE 0.2 MG/ML VIAL IV ONE (12:09)
[2021-11-11] MEDS ORDERED: NALOXONE HCL 0.4 MG/ML VIAL IV PRN (13:48)
[2021-11-11] MEDS ORDERED: LABETALOL 5 MG/ML ML IV PRN (13:48)
[2021-11-11] MEDS ORDERED: METOPROLOL TARTRATE 5 MG/5 ML VIAL IV PRN (13:48)
[2021-11-11] MEDS ORDERED: MEPERIDINE 25 MG/ML VIAL IV PRN (13:48)
[2021-11-11] MEDS ORDERED: fentaNYL 100 MCG/2 ML VIAL IV PRN (13:48)
[2021-11-11] MEDS ORDERED: HYDROmorphone 0.5 MG/0.5 ML SYRINGE IV PRN (13:48)
[2021-11-11] MEDS ORDERED: METHOCARBAMOL 1,000 MG/10 ML VIAL IV PRN (13:48)
[2021-11-11] MEDS ORDERED: FLUMAZENIL 0.1 MG/ML ML IV PRN (13:48)
[2021-11-11] MEDS ORDERED: LACTATED RINGERS 250 ML IV PRN (13:48)
[2021-11-11] MEDS ORDERED: IPRATROPIUM/ALBUTEROL 3 ML AMPUL.NEB NEB PRN (13:48)
[2021-11-11] MEDS ORDERED: ACETAMINOPHEN 1,000 MG/100 ML BAG IV ONE (13:48)
[2021-11-11] MEDS ORDERED: LACTATED RINGERS 1,000 ML IV SCH (14:00)
[2021-11-11] MEDS: LACTATED RINGERS 1,000 ML IV SCH ×2 (14:00→17:28)
--- NOTE | 2021-11-11 14:47 | XRay Report ---
INDICATION: Post-Op Total Hip TECHNIQUE: AP pelvis. AP and crosstable lateral left hip COMPARISON: Previous examination dated 11/10/2021 FINDINGS: Revision of left hip hemiarthroplasty. Left total hip arthroplasty performed. Anatomic alignment demonstrated. Mild postsurgical soft tissue gas is present. Pelvis is negative. No fracture. IMPRESSION: Left total hip arthroplasty Interpreted and Authenticated by: Vinay Watts 11/11/21
--- NOTE | 2021-11-11 15:02 | Operative Note ---
DATE OF OPERATION: 11/11/2021 DATE OF PROCEDURE: 11/11/2021 PREOPERATIVE DIAGNOSIS: Left hip dislocation after tripping and falling on a curb. POSTOPERATIVE DIAGNOSES: 1. Left hip dislocation after tripping and falling on a curb 2. Prior hip fracture. PROCEDURE: Left hip revision to lengthen the leg with open reduction and capsule repair. SURGEON: Arthur Mario MD ACQUISITION ASSOCIATE: Danny Lowery PA-C. This providers expertise and technical skill were required throughout the case. The ELIEZER assisted with preoperative coordination, intraoperative retraction, wound closure, and dressing and splint application, as well as postoperative documentation and care coordination. ANESTHESIA: General LMA anesthesia. COMPLICATIONS: None. DESCRIPTION OF PROCEDURE: The patient was brought to the operating room, put to sleep with general LMA anesthesia. Timeout was performed, confirming the operative site by initials, consent form, and x-rays, preoperative antibiotics given tranexamic acid confirmed given. We made an incision through a prior scar, dissected down to the fascial layer which was then incised. A large hematoma was encountered. We then removed the ball from the hemiarthroplasty, which measured 45 mm in diameter with a +4 neck length. This was converted to a +7.5 mm neck length and a 45 mm ball. This was reduced, reestablished stability and also removed some of the entrapped soft tissue in the acetabulum. The posterior acetabulum was intact. I did not see a fracture. For this reason, we just exchanged the femoral head from a 45 to with a 45 with a +7.5 neck length. After being reduced, we repaired the capsule with #2 Ethibond x2. This repaired the superior capsule to the hip. We irrigated thoroughly and retook the hip through the range of motion. It could not be dislocated. At this point, we then closed the fascial layer with #1 Stratafix. Skin was closed with Stratafix and adhesive closure. The patient tolerated this well without complication. [facility]:esperanza Job ID: [id number] Doc ID: [id number] Arthur Mario MD
[2021-11-11] MEDS: 0.9 % SODIUM CHLORIDE 10 ML SYRINGE IV SCH ×2 (15:19→20:38)
[2021-11-11] MEDS: ceFAZolin 1 GM VIAL IV SCH (19:05)
[2021-11-11] MEDS: ASPIRIN 81 MG TAB.CHEW CHEWED SCH (20:37)
[2021-11-11] MEDS: DOCUSATE SODIUM 100 MG CAPSULE PO SCH (20:37)
[2021-11-11] MEDS ORDERED: SENNOSIDES 1 TABLET PO SCH (21:00)
[2021-11-12] MEDS: ceFAZolin 1 GM VIAL IV SCH (03:35)
[2021-11-12] MEDS: 0.9 % SODIUM CHLORIDE 10 ML SYRINGE IV SCH (05:31)
[2021-11-12] MEDS: INSULIN LISPRO 1 UNIT/0.01 ML UNIT SQ SCH ×2 (07:29→11:27)
[2021-11-12] MEDS: ASPIRIN 81 MG TAB.CHEW CHEWED SCH (08:32)
[2021-11-12] MEDS: DOCUSATE SODIUM 100 MG CAPSULE PO SCH (08:32)
[2021-11-12] MEDS ORDERED: oxyCODONE/APAP 5/325MG TABLET PO PRN (09:53)
[2021-11-12] MEDS ORDERED: HYDROcodone/APAP 10/325MG TABLET PO PRN ×2 (09:57→10:10)
[2021-11-12] MEDS ORDERED: HYDROcodone/APAP (PP) 5/325MG TABLET (#4) PO PRN (09:57)
[2021-11-12] MEDS ORDERED: LANCETS PRN (09:59)
[2021-11-12] MEDS ORDERED: [UNRECOGNIZED DRUG - OTHER] IM SCH (10:00)
[2021-11-12] MEDS ORDERED: PALIPERIDONE PALMITATE IM SCH (10:00)
[2021-11-12] MEDS ORDERED: NON FORMULARY MEDICATION 1 DOSE MISCELL (Insulin Aspart U-100 [Novolog Flexpen U-100 Insul SCH (10:00)
[2021-11-12] MEDS ORDERED: [UNRECOGNIZED DRUG - OTHER] PRN (10:04)
[2021-11-12] MEDS ORDERED: DIABETIC PRN (10:04)
[2021-11-12] MEDS ORDERED: INSULIN LISPRO 1 UNIT/0.01 ML UNIT SQ SCH (17:00)
[2021-11-12] MEDS ORDERED: NON FORMULARY MEDICATION 1 DOSE MISCELL (Aspirin [Ecotrin Low Strength] 81 mg tablet,delay PO SCH (21:00)
[2021-11-12] MEDS ORDERED: DOCUSATE SODIUM 100 MG CAPSULE PO SCH (21:00)
[2021-11-12] MEDS ORDERED: CETIRIZINE 10 MG TABLET PO SCH (21:00)
[2021-11-12] MEDS ORDERED: BENZTROPINE 1 MG TABLET PO SCH (21:00)
[2021-11-12] MEDS ORDERED: lamoTRIgine 100 MG TABLET PO SCH (21:00)
[2021-11-12] MEDS ORDERED: LOXAPINE SUCCINATE 10 MG PO SCH (21:00)
[2021-11-13] MEDS ORDERED: LEVOTHYROXINE SODIUM 112 MCG TABLET PO SCH (09:00)
[2021-11-13] MEDS ORDERED: ATORVASTATIN 40 MG TABLET PO SCH (09:00)
[2021-11-13] MEDS ORDERED: [UNRECOGNIZED DRUG - OTHER] SCH (09:00)
[2021-11-13] MEDS ORDERED: INSULIN GLARGINE, HUMAN 1 UNIT/0.01 ML SQ SCH (09:00)
[2021-11-13] MEDS ORDERED: OXYBUTYNIN CHLORIDE 5 MG TAB.XL.24H PO SCH (09:00)
[2021-11-13] MEDS ORDERED: ESCITALOPRAM 10 MG TABLET PO SCH (09:00)
[2021-11-14] MEDS ORDERED: ERGOCALCIFEROL (VITAMIN D2) 50,000 UNIT CAPSULE PO SCH (09:00)
== END 2021-11-12 14:15 | disposition home health service (06) ==
LOC: ED 09:28 → INTOOBSV 14:41 → MEDSUR 14:41
PROVIDERS: ADMIT Orthopaedic Surgery; ATTEND Orthopaedic Surgery